=== PATIENT | female | born 1980 | race Caucasian/White ===

== ENCOUNTER → 2018-12-08 | Outpatient (CLI) | payer OTHER, SELFPAY ==
[2018-10-13 14:55] VITALS: BMI 24.5
--- NOTE | 2018-12-08 14:22 | BI_ITS ---
MAMMOGRAPHY - BILATERAL SCREENING REASON FOR EXAM: Female, 38 years old. Routine annual screening examination. PERTINENT HISTORY: Mother with breast cancer. Aunt with breast cancer. TECHNIQUE: Digital bilateral breast ingrid (3D mammographic acquisition) in the CC and MLO projections. 2-D mediolateral oblique (MLO) and craniocaudad (CC) views of both breasts were obtained. CAD: Full Field Digital Mammography with Computer Added Detection was performed. COMPARISON: None. Baseline examination. FINDINGS: Breast Composition: The breasts are extremely dense, which lowers the sensitivity of mammography. There are no dominant masses or suspicious calcifications. No other significant abnormalities are identified. BI/SCREEN MAMM (CAD) W/INGRID BILAT IMPRESSION: Negative screening mammogram. Yearly followup mammogram recommended. (A) ASSESSMENT CATEGORY: BIRADS Category 1: Negative. A letter regarding these results will be sent to the patient by the facility within 30 days. Approximately 10% of breast cancers are not detected by mammography. A normal mammogram should not delay biopsy of a clinically suspicious abnormality. [id number] Electronically Signed: Hiren Corrales, at 8:27 EDT , Service support ,
== END | disposition home or self-care (01) ==
LOC: OPBI 14:19
PROVIDERS: Family Provider Family Medicine; PCP Family Medicine; Referring Provider Obstetrics & Gynecology; Visit Provider Obstetrics & Gynecology
DX: Z12.31 Encounter for screening mammogram for malignant neoplasm of breast (principal)
CPT/HCPCS: 77063; 77067

== ENCOUNTER → 2019-03-01 | Outpatient (CLI) | payer OTHER, SELFPAY ==
[2018-10-13 14:55] VITALS: BMI 24.5
--- NOTE | 2019-03-01 09:31 | VDLE_ITS ---
Reason For Study: Burning and itching RIGHT LEFT CFV is compressible, spontaneous, phasic, CFV is compressible, spontaneous, phasic, competent and demonstrates normal competent, and demonstrates normal augmentation. augmentation. FV is compressible, spontaneous, phasic, FV is compressible, spontaneous, phasic, competent and demonstrates normal competent and demonstrates normal augmentation. augmentation. POP V is compressible, spontaneous, phasic, POP V is compressible, spontaneous, phasic, competent and demonstrates normal competent and demonstrates normal augmentation. augmentation. T/P Trunk is compressible. T/P Trunk is compressible. PTV is compressible. PTV is compressible. RT PerV is compressible. LT PerV is compressible. SFJ is competent and measures 0.56 x 0.76 cm. SFJ is competent and measures 0.62 x 0.67 cm. GSV proximal thigh measures 0.48 x 0.52 cm. GSV proximal thigh measures 0.39 x 0.36 cm. GSV above knee is competent. GSV at knee measures 0.33 x 0.36 cm. GSV at knee measures 0.28 x 0.32 cm. GSV is competent throughout. GSV below knee is INCOMPETENT for greater SSV proximal calf is competent and measures than 0.5 seconds. 0.20 x 0.18 cm. ASV mid calf is INCOMPETENT for greater than 0.5 seconds and measures 0.22 x 0.25 cm. SSV proximal calf is INCOMPETENT for greater than 0.5 seconds and measures 0.50 x 0.56 cm. Procedure Exam performed in department. Interpretation Summary Deep veins of the lower extremities are bilaterally patent and compressible segmentally. There is no evidence of deep vein thrombosis on either side. Valvular competence appears intact within the proximal deep venous systems bilaterally. The great saphenous veins appear bilaterally patent and compressible segmentally. Sapheno-femoral junctions are bilaterally competent . The right great saphenous vein appears competent above the knee. The right great saphenous vein appears incompetent below the knee. The left great saphenous vein appears segmentally competent. The right small saphenous vein is patent and incompetent. The left small saphenous vein is patent and competent. The right accessory saphenous vein in the right mid-calf is incompetent. Ordering Physician: Christiano Rowan Referring Physician: Keyur Bales Performed By: Nicci Thornton RVT
== END | disposition home or self-care (01) ==
LOC: CVS 09:30
PROVIDERS: Family Provider Family Medicine; PCP Family Medicine; Referring Provider Surgery; Visit Provider Surgery
DX: I87.2 Venous insufficiency (chronic) (peripheral) (principal); I83.10 Varicose veins of unspecified lower extremity with inflammation; M79.609 Pain in unspecified limb; R20.8 Other disturbances of skin sensation
CPT/HCPCS: 93970

== ENCOUNTER → 2019-04-20 12:37 | Outpatient (CLI) | payer OTHER, SELFPAY ==
[2018-10-13 14:55] VITALS: BMI 24.5
--- NOTE | 2019-04-20 12:39 | RAD_ITS ---
STUDY: X-RAY CHEST REASON FOR EXAM: Female, 39 years old. Cough TECHNIQUE: PA and lateral views of the chest. COMPARISON: January 01, 2015. FINDINGS: The lungs are clear and expanded. There is no demonstrated pleural abnormality. Normal size heart. Normal mediastinum and edita. Normal visualized pulmonary arteries. Normal visualized aortic arch and descending thoracic aorta. There are mild degenerative changes of the visualized thoracic spine. Normal visualized ribs, clavicles, and shoulders. There is no demonstrated abnormality of the visualized soft tissue structures of the upper abdomen. RAD/Chest PA and Lateral IMPRESSION: No demonstrated acute cardiopulmonary process. Electronically Signed: Jenni Molina MD at 16:01 EDT Tel , Service support ,
== END ==
PROVIDERS: Family Provider Family Medicine; PCP Family Medicine; Referring Provider Family Medicine; Visit Provider Family Medicine
DX: R05 Cough (principal)
CPT/HCPCS: 71046

== ENCOUNTER → 2019-08-17 12:25 | Outpatient (CLI) | payer OTHER, SELFPAY ==
[2018-10-13 14:55] VITALS: BMI 24.5
--- NOTE | 2019-08-17 12:36 | MRI_ITS ---
STUDY: MRI BRAIN WITH AND WITHOUT CONTRAST REASON FOR EXAM: Female, 39 years old. Intermitent episodes of RIGHT arm paresthesias and paralysis; R/O MS TECHNIQUE: Standardized multiplanar fat and water weighted pulse sequences were obtained. IV Dotarem 13ml was administered for the contrast portion of the examination. COMPARISON: None. FINDINGS: Normal size of the ventricles and extra-axial spaces for the patient''s age. Normal white matter tracts of the supratentorial brain. There is no evidence for recent intracranial ischemia or other cause of cytotoxic edema on diffusion weighted imaging (DWI). Normal bilateral basal ganglia. Normal thalami. There is no extra-axial fluid accumulation. Normal flow voids within the major intracranial circulation suggesting patency by spin echo criteria. Normal venous enhancement. There is no enhancing intra-axial or extra-axial abnormality. Normal sella turcica, pituitary gland, infundibular stalk, optic chiasm and hypothalamus. Normal tectal plate and pineal gland. Normal midbrain, queenie and medulla. Normal cerebellum. Normal basal cisterns. Normal bilateral temporal bones. Normal bilateral internal auditory canals. No demonstrated orbital abnormality, within the constraints of a routine brain study. Normal visualized paranasal sinuses. Normal calvarium and skull base. Normal visualized soft tissue structures. Normal visualized upper cervical spine. MRI/Brain W/WO Contrast IMPRESSION: Normal unenhanced and enhanced MRI of the brain. Electronically Signed: Joseph Ortiz MD at 14:46 EST Tel , Service support ,
--- NOTE | 2019-08-17 12:36 | MRI_ITS ---
STUDY: MRI CERVICAL SPINE WITH AND WITHOUT CONTRAST REASON FOR EXAM: Female, 39 years old. Episodes of RIGHT arm paralysis, numbness,right neck pain TECHNIQUE: Standardized fat and water weighted pulse sequences were obtained in the sagittal and axial following administration of IV 13ml Dotarem. COMPARISON: None FINDINGS: Normal foramen magnum and brainstem-cervical cord junction. Normal craniovertebral junction. Normal anterior atlantoaxial articulation. Normal odontoid process. There is straightening of the normal cervical lordosis. Normal vertebral bodies and posterior osseous elements. C2-3: Normal endplates. Normal disc height, signal and morphology. Normal central canal and intervertebral neural foramina. C3-4: Normal endplates. Normal disc height, signal and morphology. Normal central canal and intervertebral neural foramina. C4-5: Normal endplates. Normal disc height, signal and morphology. Normal central canal and intervertebral neural foramina. C5-6: Normal endplates. Normal disc height, signal and morphology. Normal central canal and intervertebral neural foramina. C6-7: Normal endplates. Normal disc height, signal and morphology. Normal central canal and intervertebral neural foramina. Arachnoid cyst of the right nerve root sheath. C7-T1: Normal endplates. Normal disc height, signal and morphology. Normal central canal and intervertebral neural foramina. Arachnoid cyst of the nerve root sheaths bilaterally. Normal cervical cord. Normal visualized soft tissue structures. MRI/Spine Cervical W/WO Contrast IMPRESSION: Normal unenhanced and enhanced MR examination of the cervical spine. Straightening of the normal lordotic curvature possibly from muscular spasm. No MR evidence of multiple sclerosis. Electronically Signed: Joseph Ortiz MD at 16:51 EST Tel , Service support ,
== END ==
LOC: MRI 12:26
PROVIDERS: PCP Family Medicine; Referring Provider Family Medicine; Visit Provider Family Medicine
DX: G83.21 Monoplegia of upper limb affecting right dominant side (principal); R20.2 Paresthesia of skin
CPT/HCPCS: 70553; 72156; A9575; A4216

== ENCOUNTER → 2020-01-19 14:55 | Outpatient (CLI) | payer OTHER, SELFPAY ==
[2020-01-04 14:56] VITALS: BMI 24.5
--- NOTE | 2020-01-19 14:55 | BI_ITS ---
MAMMOGRAPHY - BILATERAL SCREENING REASON FOR EXAM: Female, 39 years old. Routine annual screening examination. PERTINENT HISTORY: Non-contributory. TECHNIQUE: Digital bilateral breast ingrid (3D mammographic acquisition) in the CC and MLO projections. 2-D mediolateral oblique (MLO) and craniocaudad (CC) views of both breasts were obtained. CAD: Full Field Digital Mammography with Computer Added Detection was performed. COMPARISON: Comparison is made with prior study dated December 08, 2018. FINDINGS: Breast Composition: The breasts are extremely dense, which lowers the sensitivity of mammography. There are no dominant masses or suspicious calcifications. No other significant abnormalities are identified. There has been no significant change since the prior study. BI/SCREEN MAMM (CAD) W/INGRID BILAT IMPRESSION: Stable bilateral screening mammogram. Yearly follow-up mammogram recommended. (A) ASSESSMENT CATEGORY: BIRADS Category 1: Negative. A letter regarding these results will be sent to the patient by the facility within 30 days. Approximately 10% of breast cancers are not detected by mammography. A normal mammogram should not delay biopsy of a clinically suspicious abnormality. [id number] Electronically Signed: Hiren Corrales, at 8:09 EDT , Service support ,
== END ==
PROVIDERS: PCP Family Medicine; Referring Provider Obstetrics & Gynecology; Visit Provider Obstetrics & Gynecology
DX: Z12.31 Encounter for screening mammogram for malignant neoplasm of breast (principal)
CPT/HCPCS: 77063; 77067; 87624; 88175; G0145

== ENCOUNTER 2020-01-26 14:45 | Outpatient (RCR) | payer OTHER, SELFPAY ==
[2018-10-13 14:55] VITALS: BMI 24.5
--- NOTE | 2019-08-16 16:25 | MASS.EVAL ---
Massage Therapy Evaluation: Initial Evaluation Date: 08/16/2019 /Age: 08 1980, 39 Diagnosis: Neck and back pain Goals: Decrease muscle tension Decrease neck and shoulder pain Preventitive care Assessment: Meaghan is a good candidate for massage at this time. She responded well to her first treatment. Plan: To be seen one time per month or PRN for a total of 10 one hour sessions.
--- NOTE | 2020-06-28 09:24 | DS.PCM_ITS ---
Massage Therapy Discharge Summary: Initial Evaluation Date: 08/16/2019 Diagnosis: Neck and Back Pain No. of Visits: 3 Date of last visit: 01/26/2020 This patient is being discharged from our care at the [facility]. Thank you, Ayesha Prieto LMT
== END 2020-01-26 19:00 | disposition home or self-care (01) ==
LOC: MASS 14:45
PROVIDERS: PCP Family Medicine; Referring Provider Family Medicine; Visit Provider Family Medicine
DX: M54.2 Cervicalgia (principal); M54.9 Dorsalgia, unspecified
CPT/HCPCS: 97124

== ENCOUNTER 2020-03-16 06:09 | Day surgery (SDC) | payer OTHER, SELFPAY ==
[2020-01-04 14:56] VITALS: BMI 24.5
[2020-02-01 15:14] VITALS: BMI 24.5
--- NOTE | 2020-03-12 13:14 | HP.PCM_ITS ---
Problem List (1) Chronic venous insufficiency Status: Chronic (2) Varicose veins with inflammation Status: Chronic (3) Leg pain Status: Chronic Qualifiers: Laterality: right Qualified Code(s): M79.604 - Pain in right leg History of Present Illness Date of Admission: 03/16/20 Chief Complaint: Chronic venous insufficiency, Varicose veins with inflammation, Leg pain ? Right lower extremity The patient is a 40 year old F with a longstanding history of chronic venous insufficiency, varicose veins with inflammation, and leg pain involving her lower extremities. Her right lower extremity is more severely affected. For approximately 6 years, the patient has suffered from burning and discomfort in her right lower extremity, as well as itching. She denies swelling. She has no history of thrombophlebitis. She has undergone no prior vein procedures in the past. A venous duplex examination has been performed, which revealed incompetence of the right great saphenous vein, the right small saphenous vein, and an accessory saphenous vein in the mid calf. The implications of this diagnosis were discussed with the patient in detail. The options of management were fully explained. Conservative treatment measures were implemented, which included leg elevation, avoidance of idle standing and sitting, graduated compression stockings, weight control measures, active lifestyle, [id number] analgesics, etc. Despite these measures, the patient remained symptomatic, with symptoms which have adversely affected daily activities quality of life, and job functions. Past Medical History Past Medical History (Chronic Problems): Chronic Problems (Last Reviewed 02/01/20 @ 15:11 by Bessy Briseno) Chronic venous insufficiency (Chronic) Varicose veins with inflammation (Chronic) Leg pain (Chronic) Medical History: Medical History (Last Reviewed 02/01/20 @ 15:11 by Bessy Briseno) Anxiety (Acute) F41.9 celexa started Incomplete uterovaginal prolapse (Acute) N81.2 discussed options- plan expectant management but may seek surgical repair in future. 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 Lives: Spouse/ Significant Other Smoking Status: Never smoker Tobacco Use: Non-smoker Alcohol: Occasional Drugs: None - *Family History Paternal Family History: Family History (Last Reviewed 02/01/20 @ 15:11 by Bessy Briseno) Mother Heart disease Grandmother Breast cancer Father Hypercholesterolemia Review of Systems Constitutional: Denies: Chills, Fever, Weight Change HEENT: Denies: Head Aches, Sinus Congestion, Sinus Drainage Cardiovascular: Denies: Chest Pain, Palpitations Respiratory: Denies: Cough, Shortness of breath at rest, Sputum production Gastrointestinal: Denies: Abdominal Pain, Nausea, Vomiting Genitourinary: Denies: Dysuria Musculoskeletal: Denies: Joint Pain, Joint Tenderness Skin: Denies: Rash, Wounds Neurological: Denies: Numbness, Tingling, Focal weakness Psychiatric: Denies: Anxiety, Depression, Homicidal Ideations, Suicidal Ideations Hematologic/ Lymphatic: Denies: Easy Bruising, Easy Bleeding VTE Information - Inpt Only VTE Present on Admission: No VTE Mechan Device Prophylaxis: SCD's - Left VTE Pharm Prophylaxis ordered?: Yes - Physical Exam Vitals/I&O's: Body Mass Index (BMI) 24.5 General: Alert, Oriented x3, Cooperative, No apparent distress, Well developed, Well nourished HEENT: Atraumatic, PERRLA, EOMI, Normocephalic Neck: Supple, No JVD, Negative Carotid Bruits, Negative Hepatojugular Reflux, No Nuchal Rigidity, Trachea Midline Lungs: Clear to auscultation, Normal air movement, No rhonchi, No wheeze, No rales, Diminished Cardiovascular: Regular rate, Regular Rhythm, Normal S1, Normal S2, No murmurs Abdomen: Bowel Sounds Present, Soft, Non Tender Extremities: No clubbing, No cyanosis, No edema, Capillary Refill Less than 3 Seconds, No Calf Tenderness, - - Multiple large varicosities are noted in the right lower extremity, particularly on the medial calf. There are otherwise no open wounds or ulcerations, and no significant skin changes. Skin: No rashes, No breakdown Musculoskeletal: No Tenderness to Palpation of Joints or Extremities, No Muscle Wasting Neurological: Cranial nerves II-XII grossly intact, Neuro grossly intact Psych/Mental Status: Normal Affect, Appropriate, Alert and oriented to time, place, person, mood and affect Assessment/Plan All Active Problems (Last Reviewed 02/01/20 @ 15:11 by Bessy Briseno) Hip pain (Acute) Back pain (Acute) Segmental and somatic dysfunction of sacral region (Acute) Segmental and somatic dysfunction of lumbar region (Acute) Anxiety (Acute) Incomplete uterovaginal prolapse (Acute) This is a 40-year-old female with a longstanding history of chronic venous insufficiency, varicose veins with inflammation, and leg pain involving her right lower extremity. Despite a prolonged period of conservative treatment, the venous symptoms in the patient's right lower extremity have persisted, and continued to adversely affect the patient's daily activities, quality of life, and job functions. The options of management have been fully explained. The indications and risks of endovenous laser ablation of the right great saphenous vein, the right small saphenous vein, and the right accessory saphenous vein in the right calf have been discussed with the patient in detail. The patient has indicated her desire to proceed with the aforementioned procedure. The appropriate preprocedure consent process has been undertaken. The patient is to be admitted for elective outpatient surgery.
[2020-03-16] VITALS (7 sets, daily range): BP systolic 104–114; BP diastolic 68–78; PULSE 58–81; RESP 16–18; TEMP 36.3–37.3; O2SAT 97–100; BMI 24.2
[2020-03-16 06:38] LABS: Internal QC Validated? YES +Cl - CLEAR BKGD; Pregnancy, Urine Negative Negative
[2020-03-16] MEDS: Lactated Ringers 1,000 ML 100 ML IV ×2 (06:54→10:47)
[2020-03-16] MEDS: Enoxaparin 30 MG/0.3 ML Syringe SC (06:54)
--- NOTE | 2020-03-16 10:41 | DCINST_ITS ---
Discharge Diet: No Restrictions Discharge Activity: May Not Drive May shower in (days): 2 Weight Bearing Status: Weight bearing as tolerated Lifting Restrictions: 10 pounds Keep extremity elevated above heart level: Right Leg Call your doctor if you observe: Shortness of breath, Fainting spells, Chest pain, Prolonged hiccoughing, Uncontrolled pain Suture Line Care: Avoid Pulling/Pushing Remove Dressing in (days):: 2 - Then rewrap leg with Arsen daily from base of toes to upper thigh. Allergies/Adverse Reactions: Allergies Penicillins Allergy (Verified 03/16/20 06:38) NEEDS FOLLOW-UP Medications to take at Discharge NK 12/30/19 Primary Care Physician: Keyur Bales DO [Primary Care Provider] - Test Results: Test results from this visit will be discussed in further detail at your follow- up appointment, if applicable. Please Follow Up With: Christiano Rowan MD When: 10-14 days
--- NOTE | 2020-03-19 11:49 | OP.PCM_ITS ---
Problem List (1) Chronic venous insufficiency Status: Chronic (2) Varicose veins with inflammation Status: Chronic (3) Leg pain Status: Chronic Qualifiers: Laterality: right Qualified Code(s): M79.604 - Pain in right leg Report of Operation Date of Procedure: 03/16/20 Pre-Operative Diagnosis: Chronic venous insufficiency, Varicose veins with inflammation, Leg pain - Right lower extremity Post-Operative Diagnosis: Chronic venous insufficiency, Varicose veins with inflammation, Leg pain - Right lower extremity Surgery/Procedure Performed:: 1. Endovenous laser ablation of the right great saphenous vein. 2. Endovenous laser ablation of the right small saphenous vein. 3. Endovenous laser ablation of the right accessory saphenous vein (calf) Description of Surgical Findings:: As above Type of Anesthesia:: General, Tumescent Anesthesiologist: Maxim Ny Specimen's removed: None Drains: None Estimated Blood Loss (mL): Minimal Description of Procedure: This is a 40-year-old female who presented with chronic venous insufficiency, varicose veins with inflammation, and leg pain involving her right lower extremity. A preoperative venous duplex examination revealed segmental valvular incompetence involving the right great saphenous vein, right small saphenous vein, and the right accessory saphenous vein in the calf. The implications of this diagnosis were discussed with the patient in detail. The options of management were fully explained. Conservative treatment measures were implemented, which included leg elevation, avoidance of idle standing and sitting, graduated compression stockings, weight control measures, active lifestyle, [id number] analgesics, etc. Despite these measures, the patient remained symptomatic, with symptoms which adversely affected daily activities, quality of life, and job functions. The options of management were discussed with the patient thoroughly. The indications and risks of endovenous laser ablation of the right great saphenous vein, the right small saphenous vein, and the right accessory saphenous vein were discussed with the patient in detail. The appropriate expectations related to the procedure were discussed in detail. The patient indicated her desire to proceed, and the appropriate preprocedure consent was obtained. The patient underwent ultrasound marking of the right great saphenous vein, right small saphenous vein, and the right accessory saphenous vein in the calf preoperatively. She was then brought to the operating room suite, placed supine upon the operating room table, where general anesthesia was administered by the anesthesia staff. The patient's right lower extremity and right groin were p repped and draped in the appropriate sterile manner. The patient was placed in reverse Trendelenburg position. Ultrasonography was used to image the right great saphenous vein in the distal calf. The micropuncture technique was used to access the right great saphenous vein percutaneously in the distal calf. In this manner, a 0.018 inch guidewire was advanced intraluminally into the right great saphenous vein, and was visualized by ultrasonography. A micropuncture sheath was advanced over the guidewire. The 0.018 inch guidewire was exchanged for a 0.035 inch guidewire, which was then advanced intraluminally to a level just distal to the right sapheno-femoral junction, as confirmed by ultrasound imaging. A long 4 Marshallese sheath was then advanced over the guidewire, and its tip was positioned approximately 2 to 2-1/2 cm distal to the right sapheno- femoral junction. Attention was then directed to the incompetent right small saphenous vein. To enhance exposure, the right lower extremity was placed in an externally rotated position with the right knee flexed. Using ultrasound imaging and the micropuncture technique, a micropuncture sheath was introduced intraluminally near the inferior border of the right gastrocnemius muscle, and was left in place, capped, for subsequent access purposes. Attention was then directed to the incompetent right accessory saphenous vein in the right calf. Using ultrasound imaging and the micropuncture technique, a micropuncture sheath was introduced intraluminally in the distal calf. It became apparent, however, that the guidewire did not freely advance proximally into the proximal portion of the incompetent accessory saphenous vein, with its junction at knee level. Despite several maneuvers, and the use of a hydrophilic guidewire, advancement into the proximal portion of the incompetent accessory saphenous vein was not possible. Therefore, the decision was made to achieve a second access site into the proximal portion of the incompetent right accessory saphenous vein, which was accomplished using the micropuncture technique and ultrasound imaging. In this manner, a second micropuncture sheath was introduced more proximally, and left in place, capped, for subsequent access purposes. Attention was then redirected to the long 4 Marshallese sheath which had been previously placed intraluminally within the right great saphenous vein. Perivenous tumescent anesthesia was injected from the 4 Marshallese sheath exit site up to the tip of the sheath near the right saphenofemoral junction. This was performed segmentally using ultrasound imaging. The AngioDynamics laser fiber was then introduced into the 4 Marshallese sheath and coupled appropriately. Ultrasonography was used to confirm that the tip of the laser fiber was positioned within the right great saphenous vein approximately 2 to 2-1/2 cm distal to the right saphenofemoral junction. The patient was placed in Trendelenburg position and the laser fiber was activated. The AngioDynamics laser was slowly withdrawn at a constant rate throughout the length of the right great saphenous vein, thereby ablating the right great saphenous vein segmentally. The energy applied was approximately 60 to 80 J/cm. Following the laser ablation, the laser fiber and sheath were removed, and manual pressure was briefly applied to the percutaneous access site to achieve hemostasis. Attention was then directed to the incompetent right small saphenous vein, into which a micropuncture sheath had been previously placed. A 0.035 inch guidewire was introduced intraluminally and advanced into the proximal portion of the right small saphenous vein. The long 4 Marshallese sheath was then advanced over the guidewire and into position intraluminally within the right small saphenous vein. Perivenous tumescent anesthesia was then injected from the 4 Marshallese sheath exit site up to the tip of the sheath in the proximal portion of the right small saphenous vein. This was performed segmentally using ultrasound imaging. The AngioDynamics laser fiber was then introduced into the 4 Marshallese sheath and coupled appropriately. Ultrasonography was used to confirm that the tip of the laser fiber was positioned within the proximal portion of the right small saphenous vein, several centimeters distal to its junction with the deep venous system, and remaining within the superficial portion of the right small saphenous vein. The patient was placed in Trendelenburg position and the laser fiber was activated. The AngioDynamics laser was slowly withdrawn at a constant rate throughout the length of the right small saphenous vein, thereby ablating the right small saphenous vein segmentally. The energy applied was approximately 60 to 80 J/cm. Following the laser ablation, the laser fiber and sheath were removed, and manual pressure was briefly applied to the percutaneous access site to achieve hemostasis. Attention was then directed to the micropuncture sheath which had been previou sly placed intraluminally within the distal portion of the incompetent right accessory saphenous vein. A 0.035 inch guidewire was introduced intraluminally and advanced as far proximally as possible, though meeting with resistance and obstruction, as had occurred previously. The long 4 Marshallese sheath was then advanced over the guidewire into the accessory saphenous vein intraluminally. Perivenous tumescent anesthesia was then injected from the 4 Marshallese sheath exit site up to the tip of the sheath, which was positioned approximately midway up the accessory saphenous vein, to the level of resistance. The AngioDynamics laser fiber was then introduced into the 4 Marshallese sheath and coupled appropriately. The patient was placed in Trendelenburg position and the laser fiber was activated. The AngioDynamics laser was slowly withdrawn at a constant rate throughout the length of the distal accessory saphenous vein, thereby ablating the distal portion of the accessory saphenous vein segmentally. The energy applied was approximately 60 to 80 J/cm. Following the laser ablation, the laser fiber and sheath were removed, and manual pressure was briefly applied to the percutaneous access site to achieve hemostasis. Attention was then directed to the micropuncture sheath which had been previously placed intraluminally within the incompetent accessory saphenous vein, just proximal to the site of obstruction which had been previously encountered. A 0.035 inch guidewire was introduced intraluminally and advanced into the proximal portion of the incompetent accessory saphenous vein, near its junction with the previously ablated great saphenous vein. The long 4 Marshallese sheath was then advanced over the guidewire and into position intraluminally within the accessory saphenous vein. Perivenous tumescent anesthesia was injected from the 4 Marshallese sheath exit site up to the tip of the sheath in the proximal accessory saphenous vein. This was performed segmentally using ultrasound imaging. The AngioDynamics laser fiber was then introduced into the 4 Marshallese sheath and coupled appropriately. Ultrasonography was used to confirm that the tip of the laser fiber was positioned within the proximal portion of the incompetent accessory saphenous vein, near its junction with the previously ablated great saphenous vein. The patient was placed in Trendelenburg position and the laser fiber was activated. The AngioDynamics laser was slowly withdrawn at a constant rate throughout the length of the proximal accessory saphenous vein, thereby ablating the proximal accessory saphenous vein segmentally. The energy applied was approximately 60 to 80 J/cm. Following the laser ablation, the laser fiber and sheath were removed, and manual pressure was briefly applied to the percutaneous access site to achieve hemostasis. After assuring satisfactory hemostasis, the access sites were approximated using Cavilon and Steri-Strips. Dry sterile gauze dressings were applied over each of the access sites, and the leg was wrapped from the base of the toes to the upper thigh with Kerlix, followed by Arsen wrap. The blood loss for the procedure was minimal. The sponge, needle, and instrument counts at the end of the procedure were correct. The patient tolerated the procedure well, and was transported from the operating room to the postanesthesia care unit in stable condition. The amount of tumescent anesthesia utilized, number of joules applied, and treatment times were recorded separately. - Complications None - Admit VTE Documentation VTE Present on Admission: No VTE Mechan Device Prophylaxis: SCD's - Left VTE Pharm Prophylaxis ordered?: Yes
== END 2020-03-16 12:30 | disposition home or self-care (01) ==
LOC: SDC 06:11 → AC 06:11
PROVIDERS: PCP Family Medicine; Referring Provider Surgery; Visit Provider Surgery
PROC: (CPT 36478; principal; 2020-03-16 07:15)
DX: I83.11 Varicose veins of right lower extremity with inflammation (principal); M99.03 Segmental and somatic dysfunction of lumbar region; M99.04 Segmental and somatic dysfunction of sacral region
CPT/HCPCS: 01930; 36478; 36479; 81025; J7040; J7120; C1769; J2405

== ENCOUNTER → 2020-04-25 | Outpatient (CLI) | payer OTHER, SELFPAY ==
[2020-04-25 11:09] VITALS: BMI 25.0
[2020-04-28 09:46] LABS: HPV APTIMA, High Risk Negative (Negative)
== END | disposition home or self-care (01) ==
LOC: LABSPEC 12:26
PROVIDERS: PCP Family Medicine; Visit Provider Nurse Practitioner Women's Health
DX: Z12.4 Encounter for screening for malignant neoplasm of cervix (principal)
CPT/HCPCS: 87624; 88175; G0145

== ENCOUNTER → 2020-05-12 09:16 | Outpatient (CLI) | payer OTHER, SELFPAY ==
[2020-04-25 11:09] VITALS: BMI 25.0
[2020-05-12 09:21] LABS: Mucous, Urine 0 SEEN /hpf (<or=2+)
[2020-05-12 10:41] LABS: Color, Urine Yellow (Yellow); Glucose, Dipstick Normal (Normal); Ketone-Dipstick 50 mg/dl (Negative); Leukocyte Esterase-Dipstick 25 /ul (Negative); Nitrite-Dipstick Negative (Negative); Occult Blood-Urine 150 /ul (Negative); Protein-Dipstick 30 mg/dl (Negative); Urine Bilirubin Dipstick Negative (Negative); Urine Clarity Sl. Cloudy (Clear); Urine Urobilinogen Normal (Normal)
[2020-05-12 10:57] LABS: Red Blood Cells-Urine 10-25 SEEN /hpf (0-5)
[2020-05-12 10:58] LABS: Bacteria 2+ /hpf (None Seen); Calcium Oxalate Crystals Ur 1+ /hpf (<or=2+); Squamous Epithelial Cells - UA 0-5 SEEN /hpf (5-10); White Blood Cells 0-5 SEEN /hpf (0-5)
== END ==
PROVIDERS: PCP Family Medicine; Visit Provider Family Medicine
DX: N30.00 Acute cystitis without hematuria (principal)
CPT/HCPCS: 81001; 87086; 87088

== ENCOUNTER → 2020-06-26 08:46 | Outpatient (CLI) | payer OTHER, SELFPAY ==
[2020-04-25 11:09] VITALS: BMI 25.0
--- NOTE | 2020-06-26 08:47 | VDLE_ITS ---
Reason For Study: S/P EVLA RIGHT CFV is compressible, spontaneous, phasic, competent and demonstrates normal augmentation. FV is compressible, spontaneous, phasic, competent and demonstrates normal augmentation. POP V is compressible, spontaneous, phasic, competent and demonstrates normal augmentation. T/P Trunk is compressible. PTV is compressible. RT PerV is compressible. GSV is occluded from junction to mid calf s/p EVLA. SSV is occluded s/p EVLA. ASV mid calf is occluded s/p EVLA. Varicose vein in prox-mid calf is comperssible. Unable to visualize orgin of varicose vein. Procedure This is a venous duplex using B-mode, color flow and spectral Doppler. Exam performed in department. Interpretation Summary Deep veins of the right lower extremity are patent and compressible segmentally. There is no evidence of right lower extremity deep vein thrombosis. Valvular competence appears intact within the proximal deep venous system on the right . The right great saphenous vein, small saphenous vein, and accessory saphenous vein in the right mid-calf are occluded, consistent with a prior endothermal venous ablation procedure. A varicose vein in the right proximal/mid-calf is compressible. Ordering Physician: Christiano Rowan Referring Physician: Keyur Bales Performed By: Nicci Thornton RVT
== END ==
PROVIDERS: PCP Family Medicine; Referring Provider Surgery; Visit Provider Surgery
DX: I87.2 Venous insufficiency (chronic) (peripheral) (principal); I83.899 Varicose veins of unspecified lower extremity with other complications
CPT/HCPCS: 93971

== ENCOUNTER → 2020-07-10 09:25 | Outpatient (CLI) | payer OTHER, SELFPAY ==
[2020-04-25 11:09] VITALS: BMI 25.0
== END ==
PROVIDERS: PCP Family Medicine; Referring Provider Chiropractor; Visit Provider Chiropractor
DX: M99.03 Segmental and somatic dysfunction of lumbar region (principal); M99.04 Segmental and somatic dysfunction of sacral region
CPT/HCPCS: 72110

== ENCOUNTER → 2020-10-31 09:11 | Outpatient (CLI) | payer OTHER, SELFPAY ==
[2020-04-25 11:09] VITALS: BMI 25.0
[2020-10-31 10:32] LABS: Progesterone Level 3.49 ng/mL (See Comment); T3 Total - Triiodothyronine 1.16 ng/mL (0.6-1.81)
[2020-10-31 10:37] LABS: Estradiol 91.9 pg/mL; Follicle Stimulating Hormone 2.6 mIU/mL; Free T3 3.2 pg/mL (2.18-3.98); Luteinizing Hormone 4.9 mIU/mL; T4 Free Direct 1.05 ng/dL (0.76-1.46); T4 Total, Thyroxin 7.5 ug/dL (4.8-13.9); Thyroid Stim Hormone (TSH) 1.57 uIU/mL (0.358-3.74)
== END ==
PROVIDERS: PCP Family Medicine; Referring Provider Family Medicine; Visit Provider Family Medicine
DX: Z00.00 Encounter for general adult medical examination without abnormal findings (principal); N92.1 Excessive and frequent menstruation with irregular cycle; N89.8 Other specified noninflammatory disorders of vagina
CPT/HCPCS: 36415; 82627; 82670; 83001; 83002; 84144; 84403; 84436; 84439; 84443; 84480; 84481; 82626

== ENCOUNTER → 2021-05-15 13:04 | Outpatient (CLI) | payer OTHER, SELFPAY ==
--- NOTE | 2021-05-15 13:06 | BI_ITS ---
MAMMOGRAPHY - BILATERAL SCREENING REASON FOR EXAM: Female, 41 years old. Routine annual screening examination. PERTINENT HISTORY: Non-contributory. TECHNIQUE: Digital bilateral breast ingrid (3D mammographic acquisition) in the CC and MLO projections. 2-D mediolateral oblique (MLO) and craniocaudad (CC) views of both breasts were obtained. CAD: Full Field Digital Mammography with Computer Added Detection was performed. COMPARISON: Comparison is made with prior study dated 01/19/2020 and 12/08/2017. FINDINGS: Breast Composition: The breasts are extremely dense, which lowers the sensitivity of mammography. There are no dominant masses or suspicious calcifications. No other significant abnormalities are identified. There has been no significant change since the prior study. BI/SCRN MAMM (CAD)W/INGRID BILAT IMPRESSION: Stable bilateral screening mammogram. Yearly follow-up mammogram recommended. (A) ASSESSMENT CATEGORY: BIRADS Category 1: Negative. A letter regarding these results will be sent to the patient by the facility within 30 days. Approximately 10% of breast cancers are not detected by mammography. A normal mammogram should not delay biopsy of a clinically suspicious abnormality. [id number] Electronically Signed: Hiren Corrales MD at 13:58 EST , Service support ,
== END ==
PROVIDERS: PCP Family Medicine; Referring Provider Obstetrics & Gynecology; Visit Provider Obstetrics & Gynecology
DX: Z12.31 Encounter for screening mammogram for malignant neoplasm of breast (principal)
CPT/HCPCS: 77063; 77067

== ENCOUNTER 2021-08-17 13:58 | Outpatient (CLI) | payer OTHER, SELFPAY ==
--- NOTE | 2021-08-17 14:26 | US_ITS ---
HISTORY: menorrhagia EXAMINATION: US Pelvis Non OB Complete With Transvaginal Imaging TECHNIQUE: Transvaginal (for optimal evaluation of the adnexa) pelvic ultrasound was performed. Grayscale, spectral waveform, and color flow Doppler evaluation of the adnexa. COMPARISON: None FINDINGS: UTERUS: retroverted. The uterus measures 9.5 x 6.0 x 5.1 cm. There is no uterine mass. The endometrial stripe measures 4 mm in AP diameter which is within normal limits. Cervical nabothian cyst. RIGHT OVARY: 3.8 x 2.6 x 2.1 cm. Non-enlarged, normal echogenicity. No waveforms obtained. Color flow demonstrated. LEFT OVARY: 3.0 x 2.6 x 1.6 cm. Non-enlarged, normal echogenicity. No waveforms obtained. Color flow demonstrated. FREE FLUID: None. US/Transvaginal Non- IMPRESSION: Unremarkable pelvic ultrasound. at 1614 Reported and signed by: Sohail Weston MD Electronically Signed: Sohail Weston MD at 16:13 EST ,
--- NOTE | 2021-08-17 14:26 | US_ITS ---
HISTORY: menorrhagia EXAMINATION: US Pelvis Non OB Complete With Transvaginal Imaging TECHNIQUE: Transvaginal (for optimal evaluation of the adnexa) pelvic ultrasound was performed. Grayscale, spectral waveform, and color flow Doppler evaluation of the adnexa. COMPARISON: None FINDINGS: UTERUS: retroverted. The uterus measures 9.5 x 6.0 x 5.1 cm. There is no uterine mass. The endometrial stripe measures 4 mm in AP diameter which is within normal limits. Cervical nabothian cyst. RIGHT OVARY: 3.8 x 2.6 x 2.1 cm. Non-enlarged, normal echogenicity. No waveforms obtained. Color flow demonstrated. LEFT OVARY: 3.0 x 2.6 x 1.6 cm. Non-enlarged, normal echogenicity. No waveforms obtained. Color flow demonstrated. FREE FLUID: None. US/Pelvic (Non ) IMPRESSION: Unremarkable pelvic ultrasound. at 1614 Reported and signed by: Sohail Weston MD Electronically Signed: Sohail Weston MD at 16:13 EST ,
== END 2021-08-17 23:59 | disposition home or self-care (01) ==
LOC: US 14:25
PROVIDERS: PCP Family Medicine; Referring Provider Nurse Practitioner Women's Health; Visit Provider Nurse Practitioner Women's Health
DX: N92.0 Excessive and frequent menstruation with regular cycle (principal)
CPT/HCPCS: 76830; 76856

== ENCOUNTER → 2022-05-17 | Outpatient (CLI) | payer OTHER, SELFPAY ==
--- NOTE | 2022-05-17 14:31 | BI_ITS ---
MAMMOGRAPHY - BILATERAL SCREENING REASON FOR EXAM: Female, 42 years old. Routine annual screening examination. PERTINENT HISTORY: Aunt with breast cancer. TECHNIQUE: Digital bilateral breast ingrid (3D mammographic acquisition) in the CC and MLO projections. 2-D mediolateral oblique (MLO) and craniocaudad (CC) views of both breasts were obtained. CAD: Full Field Digital Mammography with Computer Added Detection was performed. COMPARISON: Comparison is made with prior study dated 05/15/2021 and 01/19/2020. FINDINGS: Breast Composition: The breasts are extremely dense, which lowers the sensitivity of mammography. There are no dominant masses or suspicious calcifications. No other significant abnormalities are identified. There has been no significant change since the prior study. BI/SCRN MAMM (CAD)W/INGRID BILAT IMPRESSION: Stable bilateral screening mammogram. Yearly follow-up mammogram recommended. (A) ASSESSMENT CATEGORY: BIRADS Category 1: Negative. A letter regarding these results will be sent to the patient by the facility within 30 days. Approximately 10% of breast cancers are not detected by mammography. A normal mammogram should not delay biopsy of a clinically suspicious abnormality. [id number] Electronically Signed: Hiren Corrales MD at 8:26 EST ,
== END | disposition home or self-care (01) ==
LOC: OPBI 14:30
PROVIDERS: PCP Family Medicine; Visit Provider Obstetrics & Gynecology
DX: Z12.31 Encounter for screening mammogram for malignant neoplasm of breast (principal)
CPT/HCPCS: 77063; 77067

== ENCOUNTER → 2022-11-15 | Outpatient (CLI) | payer OTHER, SELFPAY ==
[2022-11-15 15:25] LABS: Absolute Lymphocyte Count 2.24 X10^3/uL (0.83-4.51); Absolute Neutrophil Count 4.5 X10^3/uL (2.0-7.7); Basophil# 0.06 X10^3/uL; Basophil% 0.8 % (0-1); Eosinophil# 0.09 X10^3/uL; Eosinophils% 1.2 % (0-5); Hematocrit 41.6 % (37-47); Hemoglobin 13.3 g/dL (12.0-15.0); Lymphocyte # 2.24 X10^3/ul (0.83-4.51); Lymphocyte % 30.2 % (19-41); Mean Corpuscular Hgb 29.7 pg (27.0-32.0); Mean Corpuscular Volume 92.9 fL (81-99); Mean Platelet Vol. 10.7 fl (6.2-12.0); Monocyte# 0.51 X10^3/uL; Monocyte% 6.9 % (0-10); NRBC Flagged by Analyzer 0 % (0-5); Neutrophil # 4.49 X10^3/uL (2.7-7.7); Neutrophil % 60.5 % (47-70); Platelet Count 335 K/mm3 (150-450); RBC Distribution Width CV 12.8 % (11.6-14.6); RBC Distribution Width SD 43.6 fl (35.1-43.9); Red Blood Count 4.48 M/mm3 (4.2-5.4); White Blood Count 7.4 K/mm3 (4.4-11.0)
[2022-11-15 16:00] LABS: ALB/GLOB Ratio 0.9 RATIO (0.9-2.4); AST(SGOT) 19 U/L (15-37); Alanine Aminotransfer ALT/SGPT 28 U/L (13-56); Albumin, Serum 3.9 g/dL (3.2-5.0); Alkaline Phosphatase 50 U/L (45-117); Anion Gap 5 (5-15); BUN 14 mg/dL (7-18); BUN/Creat Ratio 20.2 RATIO (10-20); CRP, High Sensitivity Cardiac 0.34 mg/L; Calcium,Total 9.4 mg/dL (8.5-10.1); Chloride 106 mmol/L (98-107); Creatinine, Serum 0.69 mg/dL (0.55-1.02); EST Glomerular Filtration Rate 97 mL/min (>60); Est Glom Filt Rate - Afr Amer 118 mL/min (>60); Globulin 4.3 g/dL (2.2-4.2); Glucose 113 mg/dL (74-106); Potassium 3.9 mmol/L (3.5-5.1); Protein, Total 8.2 g/dL (6.4-8.2); Sodium Level 138 mmol/L (136-145); Thyroid Stim Hormone (TSH) 2.82 uIU/mL (0.358-3.74)
== END | disposition home or self-care (01) ==
LOC: BFHLAB 13:25
PROVIDERS: PCP Family Medicine; Referring Provider Family Medicine; Visit Provider Family Medicine
DX: Z00.00 Encounter for general adult medical examination without abnormal findings (principal); R00.2 Palpitations
CPT/HCPCS: 36415; 80053; 83735; 84439; 84443; 85025; 86141

== ENCOUNTER → 2023-05-13 | Outpatient (CLI) | payer OTHER, SELFPAY ==
--- NOTE | 2023-05-13 09:01 | CT_ITS ---
STUDY: CT ABDOMEN AND PELVIS WITHOUT CONTRAST REASON FOR EXAM: Female, 43 years old. Left flank pain. RADIATION DOSAGE (If Supplied By Facility): CTDIvol = ( 6.6 ) mGy, DLP = ( 328.15 ) mGycm TECHNIQUE: Transaxial images were obtained from the dome of the diaphragm to the symphysis pubis without oral contrast, and without intravenous contrast. Sagittal and coronal images were reconstructed. Individualized dose optimization techniques were used for this CT. COMPARISON: None. FINDINGS: The visualized lung bases are unremarkable. The visualized portions of the heart are within normal limits. Normal liver. Normal gallbladder and extrahepatic biliary system. Normal spleen. Normal pancreas. Normal bilateral adrenal glands. Normal right kidney. Normal left kidney. Normal visualized stomach. Normal small intestine. Normal colon. The appendix is visualized and appears normal. Normal abdominal aorta. Normal inferior vena cava. Normal retroperitoneum. Normal urinary bladder. Enlarged uterus. Small benign-appearing bilateral inguinal lymph nodes. Normal abdominal wall. Normal osseous structures. CT/Abdomen/Pelvis without Cont IMPRESSION: Normal unenhanced CT of the abdomen and pelvis. Electronically Signed: Hiren Corrales MD at 9:56 EST ,
== END | disposition home or self-care (01) ==
LOC: CT 09:00
PROVIDERS: PCP Family Medicine; Referring Provider Nurse Practitioner Family; Visit Provider Nurse Practitioner Family
DX: R10.9 Unspecified abdominal pain (principal)
CPT/HCPCS: 74176

== ENCOUNTER → 2023-06-03 | Outpatient (CLI) | payer OTHER, SELFPAY ==
--- NOTE | 2023-06-03 14:08 | BI_ITS ---
MAMMOGRAPHY - BILATERAL SCREENING REASON FOR EXAM: Female, 43 years old. Routine annual screening examination. PERTINENT HISTORY: Non-contributory. TECHNIQUE: Digital bilateral breast ingrid (3D mammographic acquisition) in the CC and MLO projections. 2-D mediolateral oblique (MLO) and craniocaudad (CC) views of both breasts were obtained. CAD: Full Field Digital Mammography with Computer Added Detection was performed. COMPARISON: Comparison is made with prior study dated May 17, 2022 and May 15, 2021. FINDINGS: Breast Composition: The breasts are extremely dense, which lowers the sensitivity of mammography. There are no dominant masses or suspicious calcifications. No other significant abnormalities are identified. There has been no significant change since the prior study. BI/SCRN MAMM (CAD)W/INGRID BILAT IMPRESSION: Stable bilateral screening mammogram. Yearly follow-up mammogram recommended. (A) ASSESSMENT CATEGORY: BIRADS Category 1: Negative. A letter regarding these results will be sent to the patient by the facility within 30 days. Approximately 10% of breast cancers are not detected by mammography. A normal mammogram should not delay biopsy of a clinically suspicious abnormality. [id number] Electronically Signed: Hiren Corrales MD at 8:43 EST ,
== END | disposition home or self-care (01) ==
LOC: OPBI 14:07
PROVIDERS: PCP Family Medicine; Referring Provider Obstetrics & Gynecology; Visit Provider Obstetrics & Gynecology
DX: Z12.31 Encounter for screening mammogram for malignant neoplasm of breast (principal)
CPT/HCPCS: 77063; 77067

== ENCOUNTER 2023-11-25 09:56 | Outpatient (RCR) | payer OTHER, SELFPAY | END 2023-12-05 23:59 | LOC: NS 09:56 | PROVIDERS: PCP Family Medicine; Referring Provider Family Medicine; Visit Provider Family Medicine | DX: Z71.3 Dietary counseling and surveillance (principal) | CPT/HCPCS: 97802 ==

== ENCOUNTER 2023-12-16 13:27 | Outpatient (RCR) | payer OTHER, SELFPAY | END 2024-01-04 23:59 | LOC: NS 13:27 | PROVIDERS: PCP Family Medicine; Referring Provider Family Medicine; Visit Provider Family Medicine | DX: Z71.3 Dietary counseling and surveillance (principal) | CPT/HCPCS: 97803 ==

== ENCOUNTER 2024-01-29 11:30 | Outpatient (RCR) | payer OTHER, SELFPAY | END 2024-02-04 23:59 | LOC: NS 11:30 | PROVIDERS: PCP Family Medicine; Referring Provider Family Medicine; Visit Provider Family Medicine | DX: Z71.3 Dietary counseling and surveillance (principal) | CPT/HCPCS: 97803 ==

== ENCOUNTER 2024-03-01 11:28 | Outpatient (RCR) | payer OTHER, SELFPAY | END 2024-03-06 23:59 | LOC: NS 11:28 | PROVIDERS: PCP Family Medicine; Referring Provider Family Medicine; Visit Provider Family Medicine | DX: Z71.3 Dietary counseling and surveillance (principal) | CPT/HCPCS: 97803 ==

== ENCOUNTER 2024-03-31 11:24 | Outpatient (RCR) | payer OTHER, SELFPAY | END 2024-04-05 23:59 | LOC: NS 11:24 | PROVIDERS: PCP Family Medicine; Referring Provider Family Medicine; Visit Provider Family Medicine | DX: Z71.3 Dietary counseling and surveillance (principal) | CPT/HCPCS: 97803 ==

== ENCOUNTER 2024-04-26 08:19 | Day surgery (SDC) | payer OTHER, SELFPAY ==
[2024-04-26] VITALS (9 sets, daily range): BP systolic 107–115; BP diastolic 68–76; PULSE 64–88; RESP 14–16; TEMP 36.1–37.3; O2SAT 98–100; BMI 25.6
[2024-04-26 08:40] LABS: Internal QC Validated? YES +Cl - CLEAR BKGD; Pregnancy, Urine Negative Negative
--- NOTE | 2024-04-26 08:45 | PCM.PRE.AN2 ---
ASA Classification* ASA Classification ASA Classification: 2 Assessment & Plan Anesthesia* Anesthesia Assessment Anesthesia Assessment: Discussed sedation and/or anesthesia options, risks, benefits, and alternatives with patient/parents/legal guardian/POA. Questions invited. The patient/parents/legal guardian/POA seems to understand and agrees to proceed with anesthesia plan. Reviewed the physical assessment, medical history, allergy history and patient home medications list prior to surgery/procedure/anesthetic and documented any changes. Performed airway and anesthesia risk assessments. Anesthesia Type Anesthesia Type: MAC (see written pre anesthesia record for full assessment) Anesthesia Focused Assessment* Temperature: 98.4 F Pulse Rate: 68 Blood Pressure: 107/68 Respiratory Rate: 16 Pulse Ox: 100 Airway Assessment Mouth opens: >3 cm Mallampati Score: II Focused Labs Anesthesia Preop lab: CBC WBC 6.2 K/mm3 (4.4-11.0) 12/02/23 07:33 RBC 4.35 M/mm3 (4.2-5.4) 12/02/23 07:33 Hgb 12.9 g/dL (12.0-15.0) 12/02/23 07:33 Hct 39.4 % (37-47) 12/02/23 07:33 Plt Count 288 K/mm3 (150-450) 12/02/23 07:33 CHEMISTRY Potassium 4.2 mmol/L (3.5-5.1) 12/02/23 07:33 Sodium 136 mmol/L (136-145) 12/02/23 07:33 Magnesium 2.0 mg/dL (1.6-2.6) 11/15/22 13:26 Phosphorus 3.1 mg/dL (2.5-4.9) 12/02/23 07:33 BUN 13 mg/dL (7-18) 12/02/23 07:33 Creatinine 0.81 mg/dL (0.55-1.02) 12/02/23 07:33 Glucose 110 mg/dL (74-106) H 12/02/23 07:33 TSH 2.82 uIU/mL (0.358-3.74) 11/15/22 13:26 COAG Urine Test Negative Negative 04/26/24 08:25 Pre-Assessment Diagnosis/Proposed Procedure Planned Operative Procedure(s): CSCOPE OA Anesthesia History Anesthesia History - lead process engineer: Anesthesia History - lead process engineer Hx Hospitalization No 04/22/24 15:48 Any Problems With Anesthesia No 04/22/24 15:48 Cholinesterase deficiency No 04/22/24 15:48 You/Your Family Experience No 04/22/24 15:48 fever (hyperthermia) with Relationship Recent Exposure to Contagious No 04/26/24 08:41 Disease Does patient have nerve No 04/22/24 15:48 stimulator Patient instructed to have device shut off --Does patient have Pacemaker No 04/26/24 08:41 or ICD? When Was Last Pacemaker Check QUESTION #4 FULL TEXT: You/Your Family Experience fever (hyperthermia) with Anesthesia Last Oral Intake Last Oral intake: Last Oral Intake NPO since 05:15 04/26/24 08:41 Meds taken in AM with sips of No 04/26/24 08:41 water? Meds patient instructed to take am of surgery PONV PONV - lead process engineer: PONV - lead process engineer Female Yes 04/22/24 15:48 HX of Motion Sickness Yes 04/22/24 15:48 HX of N/V After Surgery No 04/22/24 15:48 Non-Smoker Yes 04/22/24 15:48 Duration of Surgery greater No 04/22/24 15:48 than 60 minutes Number of Risk Factors 3 04/22/24 15:48 PONV Score Moderate Risk 04/22/24 15:48 Height & Weight Height & Weight: Anesthesia: Height & Weight Height 5 ft 6 in 04/26/24 08:41 Weight: 72 kg 04/26/24 08:41 Body Mass Index (BMI) 25.6 04/26/24 08:41 Respiratory Assessment Respiratory Assessment - lead process engineer: Respiratory Tract Infection Hx - lead process engineer Hx Respiratory Tract Infection No 04/22/24 15:48 STOP Sleep Apnea STOP Sleep Apnea - lead process engineer: STOP Sleep Apnea - lead process engineer Hx Hypertension No 04/22/24 15:48 Hx Sleep Apnea No 04/22/24 15:48 CPAP BIPAP Do you snore loudly (louder No 04/22/24 15:48 than talking or can be heard Do you often feel tired/ No 04/22/24 15:48 fatigued/ sleepy during daytime? Has anyone observed you stop No 04/22/24 15:48 breathing during sleep? STOP Results Negative 04/22/24 15:48 QUESTION #5 FULL TEXT : Do you snore loudly (louder than talking or can be heard through closed doors)? 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 Specify any problems Hx of Preganancy in last 3 No 04/22/24 15:48 Months Nurse Filling Out Transfusion DSCHRIBER 04/22/24 15:48 & Questions: Date: 04/22/24 04/22/24 15:48 Time: 15:48 04/22/24 15:48 Patient unable to answer at this time (ie. confused, unrespo /Reproduction History /Reproductive History - lead process engineer: /Reproductive Hx- lead process engineer Hx Now No 04/22/24 15:48 Gestational Age (in weeks): EDC: Hx Hx Para Hx Section SAB No 04/22/24 15:48 PFSH Medical History Alcohol use Restless legs Migraine headache Non-smoker Anxiety Incomplete uterovaginal prolapse Home Medications ?Medication ?Instructions ?Recorded ?Last Taken ?Type multivitamin 1 tab PO DAILY 04/25/20 Unknown History omega-3 fatty acids-fish oil 360 1 cap PO DAILY 02/06/24 04/01/24 History mg-1,200 mg capsule (Fish Oil) Allergy/AdvReac Type Severity Reaction Status Date / Time Penicillins Allergy Rash Verified 04/26/24 08:39 Family History Mother Heart disease Grandmother Breast cancer Father Hypercholesterolemia Surgical History vein ablation Hx of LASIK Social History household members: spouse current occupational status: employed current occupation: [employer] Smoking Status: Never smoker alcohol intake: never substance use type: does not use caffeine: Yes what type of physical activity do you participate in: walking seatbelt use: always do you feel safe at home: Yes additional social history: Spouse Jad Review of Systems (Anesthesia) ROS Narrative System reviewed and no additional complaints, except as documented.
--- NOTE | 2024-04-26 08:53 | H&P.OPEN ---
[facility] - General General Date of Service: 04/26/24 HPI Narrative KARYN AMBROSIO, is a 44 F who presents for screening colonoscopy. Patient never had previous colonoscopy. Patient denies any family history of colon cancer. Patient has bowel movements about every 3 days denies any blood. Patient denies any chronic abdominal pain/nausea/vomiting/reflux. [facility] Medical History Alcohol use Restless legs Migraine headache Non-smoker Anxiety Incomplete uterovaginal prolapse Home Medications ?Medication ?Instructions ?Recorded ?Last Taken ?Type multivitamin 1 tab PO DAILY 04/25/20 Unknown History omega-3 fatty acids-fish oil 360 1 cap PO DAILY 02/06/24 04/01/24 History mg-1,200 mg capsule (Fish Oil) Allergy/AdvReac Type Severity Reaction Status Date / Time Penicillins Allergy Rash Verified 04/26/24 08:39 Family History Mother Heart disease Grandmother Breast cancer Father Hypercholesterolemia Surgical History vein ablation Hx of LASIK Social History household members: spouse current occupational status: employed current occupation: [employer] Smoking Status: Never smoker alcohol intake: never substance use type: does not use caffeine: Yes what type of physical activity do you participate in: walking seatbelt use: always do you feel safe at home: Yes additional social history: Spouse Jad Past Medical/Surgical History Planned Operation Planned Operative Procedure(s): CSCOPE OA S.O.S: No Previous Hospitalizations/Surgeries HX Hospitalizations: No HX of Surgeries: lasik Any Problems With Anesthesia: No You/Your Family Experience Fever (Hyperthermia) With Anes: No Cholinesterase deficiency: No Cardiovascular Hx Chest Pain within Last 2 months: No Hx of Irregular Heartbeat and/or Afib: No Hx Heart Attack: No Hx Congestive Heart Failure: No Hx Rheumatic Fever: No Hx Hypertension: No Hx Internal Defibrillator: No Hx Pacemaker: No Hx Cardiac Surgery/Stents/Etc.: No Hx Stress Test: No Hx Pain in Legs when Walking/Leg Cramps: Yes (right leg) Respiratory Chronic Cough: No HX of Shortness of Breath: No Hoarseness: No Hx Chronic Obstructive Pulmonary Disease (COPD): No Hx Asthma: No Hx Emphysema: No Hx Sleep Apnea: No Hx Respiratory Tract Infection/Cold (presently): No Do You Snore Loudly (louder than talking or can be heard): No Do You Often Feel Tired/ Fatigued/ Sleepy Dring Daytime?: No Has Anyone Observed You Stop Breathing During Sleep?: No Result (for STOP score): Negative Hx Smoking: No Smoking Status: Never smoker Gastrointestinal Hx Gastrointestinal Disorders: No Hx Gastrointestinal Bleed: No Hx Ulcer: No Hx Hiatal Hernia: No Difficulty Chewing/Swallowing: No Special diet followed at home: No Hx Unplanned Weight Loss of 20#: No HX Unplanned Weight Gain of 20#: No Neurological Hx Seizures: No HX Syncope/Blackout Spells/Unconsciousness: No Hx Transient Ischemic Attacks (TIA): No Hx Multiple Sclerosis: No Hx Parkinson's Disease: No Hx Head/Neck Injury: No Hx Headaches: No Hx Back Injury/Pain: No Recent Onset of Speech Difficulty: No Restless Legs: No Does patient have nerve stimulator: No Blood Disorder Hx Leukemia: No Bleeding Tendencies: No Hx Deep Vein Thrombosis: No Hx High Cholesterol: No Blood Transmitted Disease: No Hx Hepatitis: No Hx Cirrhosis: No Hx Anemia: No Hx Blood Disorders: No Reproduction : No Is Patient Lactating: No Hx Hysterectomy: No Hx Tubal Ligation: No Are You Post Menopause: No Genitourinary Hx Renal Disease: No Musculoskeletal Hx Arthritis: No Hx Rheumatoid Arthritis: No Hx Gout: No Recent Onset of an Orthopedic Problem: No Endocrine Hx Diabetes: No Thyroid Disease: No Hx Steroid Therapy: No Psycho/Social Hx Substance Use: No Hx Alcohol Use: Yes (occ) Hx Anxiety: No Hx Depression: No Mental Illness: No Hx Dementia: No Miscellaneous Hx Cancer: No Recent Exposure to Contagious Disease: No Hx of C-Diff: No Any Loose Teeth: No Allergies Penicillins Allergy (Verified 04/26/24 08:39) Rash Childhood Discharge Is Pt Admitted From a Fdc, or a Retirement: No After D/C, Where Do you Plan to Go: Return Home Vital Signs Vital Signs Vital Signs: 04/26/24 08:41 04/26/24 08:41 04/26/24 08:45 Temperature 98.4 F 98.4 F Temperature Source Temporal Pulse Rate 68 68 Respiratory Rate 16 16 Respiratory Pattern Normal Blood Pressure 107/68 107/68 Blood Pressure Mean 81 Blood Pressure Source Monitor Blood Pressure Position Semi-Fowlers Blood Pressure Location Left Arm Pulse Ox 100 100 Oxygen Delivery Method Room Air Weight Weight: 158 lb 11.725 oz Body Mass Index (BMI) 25.6 Physical Exam Const alert, oriented x3 and no apparent distress HEENT normocephalic and head/scalp atraumatic Resp normal respiratory effort Cardio regular rate GI soft to palpation and non-tender; Negative for non-distended Palpation: Negative for guarding Extremity no clubbing, cyanosis or edema Skin no rashes or lesions noted Neuro CN's II-XII intact bilaterally Psych mental status grossly normal Assessment & Plan Assessment/Plan (1) Encounter for screening for malignant neoplasm of colon: Surgery Risks - Colonoscopy I discussed with the patient the risks of the procedure: Yes Risks Include but are not Limited To: Risks include but are not limited to: Bleeding, perforation requiring further surgery, inability to complete colonoscopy requiring barium enema.
--- NOTE | 2024-04-26 10:31 | PCM.POST.ANE ---
Anesthesia: Postop Eval I Current Vital Signs Temperature: 98.2 F Pulse Rate: 86 Blood Pressure: 109/76 Respiratory Rate: 16 Pulse Ox: 99 Oxygen Delivery Method: Room Air Assessment Airway patent: Yes Spontaneous unlabored respirations: Yes Mental status: Awake and Calm nausea: No Vomiting: No Anesthesia Complication: No Fluid Hydration Crystalloid volume administer (ml): 20 Total IV fluid infused: 20 Progress Note Anesthesia document: Postop Eval 1 completed: Yes
--- NOTE | 2024-04-26 10:51 | POSTOPAN2_ITS ---
Anesthesia Postop Eval I Sum Postop Eval Completion status Anesthesia document: Postop Eval 1 completed: Yes Anesthesia Postop Eval I Summary Anesthesia Postop Eval I Summary: Anesthesia Postop Eval I: Assessment Summary Airway patent Yes 04/26/24 10:51 FLOTATION OPERATOR.[email or web address] Spontaneous unlabored Yes 04/26/24 10:51 FLOTATION OPERATOR.MDOT respirations Mental status Awake,Calm 04/26/24 10:51 FLOTATION OPERATOR.MDOT nausea No 04/26/24 10:51 FLOTATION OPERATOR.MDOT Vomiting No 04/26/24 10:51 FLOTATION OPERATOR.MDOT Anesthesia Postop Eval I: Fluid Summary Crystalloid volume administer 20 04/26/24 10:51 FLOTATION OPERATOR.MDOT (ml) Colloids volume administered ( ml) Blood Product volume administered (ml) Total IV fluid infused 20 04/26/24 10:51 FLOTATION OPERATOR.MDOT Anesthesia Postop Eval I: Summary Notes Anesthesia Complication No 04/26/24 10:51 FLOTATION OPERATOR.MDOT Anesthesia Complication Comment: Post-operative progress note Anesthesia: Postop Eval II Evaluation Mental status: Awake and Calm Pain Level: 0 nausea: No Vomiting: No Complications Anesthesia Complication: No
--- NOTE | 2024-04-26 10:51 | PCM.POST.ANE ---
Anesthesia: Postop Eval I Current Vital Signs Temperature: 97 F Pulse Rate: 70 Blood Pressure: 110/72 Respiratory Rate: 16 Pulse Ox: 100 Oxygen Delivery Method: Room Air Assessment Airway patent: Yes Spontaneous unlabored respirations: Yes Mental status: Awake and Calm nausea: No Vomiting: No Anesthesia Complication: No Fluid Hydration Crystalloid volume administer (ml): 20 Total IV fluid infused: 20 Progress Note Anesthesia document: Postop Eval 1 completed: Yes
--- NOTE | 2024-04-26 10:51 | PCM.POSTANE2 ---
Anesthesia Postop Eval I Sum Postop Eval Completion status Anesthesia document: Postop Eval 1 completed: Yes Anesthesia Postop Eval I Summary Anesthesia Postop Eval I Summary: Anesthesia Postop Eval I: Assessment Summary Airway patent Yes 04/26/24 10:51 [email or web address] [email or web address].[email or web address] Spontaneous unlabored Yes 04/26/24 10:51 DRYWALL TAPER.MDOT respirations Mental status Awake,Calm 04/26/24 10:51 DRYWALL TAPER.MDOT nausea No 04/26/24 10:51 DRYWALL TAPER.MDOT Vomiting No 04/26/24 10:51 DRYWALL TAPER.MDOT Anesthesia Postop Eval I: Fluid Summary Crystalloid volume administer 20 04/26/24 10:51 DRYWALL TAPER.MDOT (ml) Colloids volume administered ( ml) Blood Product volume administered (ml) Total IV fluid infused 20 04/26/24 10:51 DRYWALL TAPER.MDOT Anesthesia Postop Eval I: Summary Notes Anesthesia Complication No 04/26/24 10:51 DRYWALL TAPER.MDOT Anesthesia Complication Comment: Post-operative progress note Anesthesia: Postop Eval II Evaluation Mental status: Awake and Calm Pain Level: 0 nausea: No Vomiting: No Complications Anesthesia Complication: No
--- NOTE | 2024-04-26 15:27 | OP.COLON_ITS ---
Patient Name: Meaghan Rodriguez Procedure Date: 04/26/2024 10:04 AM Date of : 1980 Age: 44 Procedure: Colonoscopy Indications: Screening for colorectal malignant neoplasm Providers: Tatianna Givens MD Medicines: Monitored Anesthesia Care Patient Profile: This is a 44 year old female. Last Colonoscopy: none. The patient's first colonoscopy is today. Complications: No immediate complications. Procedure: Pre-Anesthesia Assessment: - Prior to the procedure, a History and Physical was performed, and patient medications and allergies were reviewed. The patient's tolerance of previous anesthesia was also reviewed. The risks and benefits of the procedure and the sedation options and risks were discussed with the patient. All questions were answered, and informed consent was obtained. Prior Anticoagulants: The patient has taken no anticoagulant or antiplatelet agents. ASA Grade Assessment: Per anesthesia. After reviewing the risks and benefits, the patient was deemed in satisfactory condition to undergo the procedure. After I obtained informed consent, the scope was passed under direct vision. Throughout the procedure, the patient's blood pressure, pulse, and oxygen saturations were monitored continuously. The colonoscope was introduced through the anus and advanced to the cecum, identified by the appendiceal orifice, ileocecal valve and palpation. The colonoscopy was performed without difficulty. The patient tolerated the procedure well. The quality of the bowel preparation was good. Scope In: 10:11:00 AM Scope Withdrawal Time 0 hours 4 minutes 51 seconds Scope Out: 10:25:03 AM Total Procedure Duration Time 0 hours 14 minutes 3 seconds Findings: The perianal and digital rectal examinations were normal. The entire examined colon appeared normal on direct and retroflexion views. Impression: - The entire examined colon is normal on direct and retroflexion views. - No specimens collected. Recommendation: - Discharge patient to home. - Resume previous diet. - Continue present medications. - Repeat colonoscopy in 10 years for screening purposes. Procedure Code(s): --- Professional --- G0121, PT, Colorectal cancer screening; colonoscopy on individual not meeting criteria for high risk Diagnosis Code(s): --- Professional --- Z12.11, Encounter for screening for malignant neoplasm of colon CPT copyright 2021 [employer]. All rights reserved. The codes documented in this report are preliminary and upon sports commentator review may be revised to meet current compliance requirements. MD Tatianna Hopkins MD 04/26/2024 10:29:57 AM This report has been signed electronically. Number of Addenda: 0 Note Initiated On: 04/26/2024 10:04 AM
--- NOTE | 2024-04-26 15:27 | OP.CCLET_ITS ---
04/26/2024 Keyur Bales [address] [place] [address] Re : Colonoscopy procedure for Meaghan Rodriguez Dear Dr. Bales This procedure was performed on Friday, April 26, 2024. My impressions and recommendations are as follows: Impressions : - The entire examined colon is normal on direct and retroflexion views. - No specimens collected. Recommendations : - Discharge patient to home. - Resume previous diet. - Continue present medications. - Repeat colonoscopy in 10 years for screening purposes. My findings are described in the full procedure note, which is enclosed. If I can be of further assistance, please feel free to contact me at Doctor phone number(s): , Work: . Sincerely, MD Tatianna Hopkins MD 04/26/2024 10:29:57 AM This report has been signed electronically.
== END 2024-04-26 11:08 | disposition home or self-care (01) ==
LOC: EN 08:20 → AC 08:20
PROVIDERS: Anesthesiology; PCP Family Medicine; Referring Provider Family Medicine; Visit Provider Surgery
PROC: 0DJD8ZZ Inspection of Lower Intestinal Tract, Via Natural or Artificial Opening Endoscopic (ICD-10-PCS; CPT 45378; principal; 2024-04-26 09:25)
DX: Z12.11 Encounter for screening for malignant neoplasm of colon (principal)
CPT/HCPCS: 45378; 81025; A4216

== ENCOUNTER 2024-05-05 11:34 | Outpatient (RCR) | payer OTHER, SELFPAY | END 2024-05-06 23:59 | LOC: NS 11:34 | PROVIDERS: PCP Family Medicine; Referring Provider Family Medicine; Visit Provider Family Medicine | DX: Z71.3 Dietary counseling and surveillance (principal) | CPT/HCPCS: 97803 ==

== ENCOUNTER 2024-06-14 11:33 | Outpatient (RCR) | payer OTHER, SELFPAY | END 2024-07-06 23:59 | LOC: NS 11:33 | PROVIDERS: PCP Family Medicine; Referring Provider Family Medicine; Visit Provider Family Medicine | DX: Z71.3 Dietary counseling and surveillance (principal) | CPT/HCPCS: 97803 ==

== ENCOUNTER → 2024-07-21 | Outpatient (CLI) | payer OTHER, SELFPAY ==
--- NOTE | 2024-07-21 14:39 | BI_ITS ---
MAMMOGRAPHY - BILATERAL SCREENING REASON FOR EXAM: Female, 44 years old. Routine annual screening examination. PERTINENT HISTORY: Non-contributory. TECHNIQUE: Digital bilateral breast ingrid (3D mammographic acquisition) in the CC and MLO projections. 2-D mediolateral oblique (MLO) and craniocaudad (CC) views of both breasts were obtained. CAD: Full Field Digital Mammography with Computer Added Detection was performed. COMPARISON: Comparison is made with prior study dated May 26, 2023 and May 17, 2022. FINDINGS: Breast Composition: The breasts are extremely dense, which lowers the sensitivity of mammography. There are no dominant masses or suspicious calcifications. No other significant abnormalities are identified. There has been no significant change since the prior study. BI/SCRN MAMM (CAD)W/INGRID BILAT IMPRESSION: Stable bilateral screening mammogram. Yearly follow-up mammogram recommended. (A) ASSESSMENT CATEGORY: BIRADS Category 1: Negative. A letter regarding these results will be sent to the patient by the facility within 30 days. Approximately 10% of breast cancers are not detected by mammography. A normal mammogram should not delay biopsy of a clinically suspicious abnormality. [id number] Electronically Signed: Hiren Corrales MD at 15:14 EST ,
== END | disposition home or self-care (01) ==
LOC: OPBI 14:38
PROVIDERS: PCP Family Medicine; Referring Provider Obstetrics & Gynecology; Visit Provider Obstetrics & Gynecology
DX: Z12.31 Encounter for screening mammogram for malignant neoplasm of breast (principal)
CPT/HCPCS: 77063; 77067

== ENCOUNTER 2024-08-09 11:30 | Outpatient (RCR) | payer OTHER, SELFPAY | END 2024-09-03 23:59 | LOC: NS 11:30 | PROVIDERS: PCP Family Medicine; Referring Provider Family Medicine; Visit Provider Family Medicine | DX: Z71.3 Dietary counseling and surveillance (principal) | CPT/HCPCS: 97803 ==

== ENCOUNTER → 2024-08-11 | Outpatient (CLI) | payer OTHER, SELFPAY ==
[2024-08-11 06:46] LABS: Absolute Lymphocyte Count 2.08 X10^3/uL (0.83-4.51); Absolute Neutrophil Count 3.4 X10^3/uL (2.0-7.7); Basophil# 0.08 X10^3/uL; Basophil% 1.3 % (0-1); Eosinophil# 0.12 X10^3/uL; Hemoglobin 13.1 g/dL (12.0-15.0); Lymphocyte # 2.08 X10^3/ul (0.83-4.51); Lymphocyte % 33.9 % (19-41); Mean Corpuscular Volume 90.7 fL (81-99); Mean Platelet Vol. 10.1 fl (6.2-12.0); Monocyte# 0.42 X10^3/uL; Monocyte% 6.8 % (0-10); NRBC Flagged by Analyzer 0 % (0-5); Neutrophil # 3.41 X10^3/uL (2.7-7.7); Neutrophil % 55.5 % (47-70); Platelet Count 309 K/mm3 (150-450); RBC Distribution Width SD 42.9 fl (35.1-43.9); Red Blood Count 4.52 M/mm3 (4.2-5.4); White Blood Count 6.1 K/mm3 (4.4-11.0)
[2024-08-11 07:12] LABS: ALB/GLOB Ratio 0.9 RATIO (0.9-2.4); AST(SGOT) 13 U/L (15-37); Alanine Aminotransfer ALT/SGPT 22 U/L (13-56); Albumin, Serum 3.7 g/dL (3.2-5.0); Alkaline Phosphatase 60 U/L (45-117); Anion Gap 5 (5-15); BUN 15 mg/dL (7-18); BUN/Creat Ratio 20.5 RATIO (10-20); Calcium,Total 8.9 mg/dL (8.5-10.1); Chloride 108 mmol/L (98-107); Creatinine, Serum 0.73 mg/dL (0.55-1.02); EST Glomerular Filtration Rate 91 mL/min (>60); Est Glom Filt Rate - Afr Amer 110 mL/min (>60); Estradiol 64.6 pg/mL; Free T3 2.8 pg/mL (2.18-3.98); Globulin 4.2 g/dL (2.2-4.2); Glucose 105 mg/dL (74-106); Potassium 4.2 mmol/L (3.5-5.1); Protein, Total 7.9 g/dL (6.4-8.2); Sodium Level 139 mmol/L (136-145); T4 Free Direct 0.82 ng/dL (0.76-1.46)
[2024-08-11 09:17] LABS: Vitamin B12 503 pg/mL (211-911); Vitamin D,25 Hydroxy 22.4 ng/mL
[2024-08-12 04:07] LABS: DHEA Sulfate 94.6 ug/dL (41.2-243.7); PROGESTERONE 0.2 ng/mL (.)
== END | disposition home or self-care (01) ==
LOC: LAB 06:05
PROVIDERS: PCP Family Medicine; Referring Provider Specialist; Visit Provider Specialist
DX: E55.9 Vitamin D deficiency, unspecified (principal); N95.8 Other specified menopausal and perimenopausal disorders; R53.83 Other fatigue
CPT/HCPCS: 36415; 80053; 82306; 82607; 82627; 82670; 84144; 84403; 84439; 84443; 84481; 85025; 82626

== ENCOUNTER → 2024-09-20 | Outpatient (CLI) | payer OTHER, SELFPAY ==
[2024-09-24 14:08] LABS: HPV APTIMA, High Risk Negative (Negative)
== END | disposition home or self-care (01) ==
LOC: LABSPEC 16:09
PROVIDERS: PCP Family Medicine; Referring Provider Obstetrics & Gynecology; Visit Provider Obstetrics & Gynecology
DX: Z12.4 Encounter for screening for malignant neoplasm of cervix (principal)
CPT/HCPCS: 87624; 88175; G0145

== ENCOUNTER 2024-09-22 11:34 | Outpatient (RCR) | payer OTHER, SELFPAY | END 2024-10-04 23:59 | LOC: NS 11:34 | PROVIDERS: PCP Family Medicine; Referring Provider Family Medicine; Visit Provider Family Medicine | DX: Z71.3 Dietary counseling and surveillance (principal) | CPT/HCPCS: 97803 ==

== ENCOUNTER → 2024-09-24 | Outpatient (CLI) | payer OTHER, SELFPAY ==
[2024-09-24 07:11] LABS: Estradiol 46.2 pg/mL
[2024-09-25 04:07] LABS: PROGESTERONE 1.9 ng/mL (.)
== END | disposition home or self-care (01) ==
LOC: LAB 06:17
PROVIDERS: PCP Family Medicine; Referring Provider Nurse Practitioner Family; Visit Provider Nurse Practitioner Family
DX: E28.8 Other ovarian dysfunction (principal)
CPT/HCPCS: 36415; 82670; 84144; 84403

== ENCOUNTER 2024-11-02 11:33 | Outpatient (RCR) | payer OTHER, SELFPAY | END 2024-11-03 23:59 | LOC: NS 11:33 | PROVIDERS: PCP Family Medicine; Referring Provider Family Medicine; Visit Provider Family Medicine | DX: Z71.3 Dietary counseling and surveillance (principal) | CPT/HCPCS: 97803 ==

== ENCOUNTER 2024-12-15 11:26 | Outpatient (RCR) | payer OTHER, SELFPAY | END 2025-01-03 23:59 | LOC: NS 11:26 | PROVIDERS: PCP Family Medicine; Referring Provider Family Medicine; Visit Provider Family Medicine | DX: Z71.3 Dietary counseling and surveillance (principal) | CPT/HCPCS: 97803 ==

== ENCOUNTER 2025-01-26 11:31 | Outpatient (RCR) | payer OTHER, SELFPAY | END 2025-02-03 23:59 | LOC: NS 11:31 | PROVIDERS: PCP Family Medicine; Referring Provider Family Medicine; Visit Provider Family Medicine | DX: Z71.3 Dietary counseling and surveillance (principal) | CPT/HCPCS: 97803 ==

== ENCOUNTER 2025-03-16 11:23 | Outpatient (RCR) | payer OTHER, SELFPAY | END 2025-04-05 23:59 | LOC: NS 11:23 | PROVIDERS: PCP Family Medicine; Referring Provider Family Medicine; Visit Provider Family Medicine | DX: Z71.3 Dietary counseling and surveillance (principal) | CPT/HCPCS: 97803 ==

== ENCOUNTER → 2025-03-24 | Outpatient (CLI) | payer SELFPAY ==
--- NOTE | 2025-03-24 09:46 | BD_ITS ---
PROCEDURE: BODY COMPOSITION - INITIAL 03/24/2025 REASON FOR EXAM: SCREENING TECHNIQUE: Procedure Code: [email or web address] Modality: DX Procedure: BODY COMPOSITION - INITIAL COMPARISON: None FINDINGS: Body composition examination was performed. BD/Body Composition - Initial IMPRESSION: Please refer to the tables provided by the study. Reading Location: [place] [id number]
== END | disposition home or self-care (01) ==
PROVIDERS: PCP Family Medicine; Referring Provider Family Medicine; Visit Provider Family Medicine
DX: Z00.00 Encounter for general adult medical examination without abnormal findings (principal)
CPT/HCPCS: 76499

== ENCOUNTER → 2025-03-29 | Outpatient (CLI) | payer OTHER, SELFPAY ==
[2025-03-29 08:56] LABS: Hematocrit 39.1 % (37-47); Hemoglobin 13.2 g/dL (12.0-15.0); Immature Granulocytes Count 0.030 X10^3/uL (0.0-0.0); Mean Corp Hgb Conc 33.8 g/dL (32-36); Mean Corpuscular Volume 87.7 fL (81-99); Mean Platelet Vol. 10.2 fl (6.2-12.0); NRBC Flagged by Analyzer 0 % (0-5); Platelet Count 341 K/mm3 (150-450); RBC Distribution Width CV 12.9 % (11.6-14.6); RBC Distribution Width SD 41.1 fl (35.1-43.9); Red Blood Count 4.46 M/mm3 (4.2-5.4); White Blood Count 8.1 K/mm3 (4.4-11.0)
[2025-03-29 09:39] LABS: AST(SGOT) 18 U/L (<=31); Alanine Aminotransfer ALT/SGPT 16 U/L (<=34); Albumin, Serum 4.6 g/dL (3.5-5.0); Alkaline Phosphatase 60 U/L (35-104); Anion Gap 13 (5-15); BUN 14 mg/dL (4-19); BUN/Creat Ratio 21.1 RATIO (10-20); Calcium,Total 9.5 mg/dL (7.6-11.0); Carbon Dioxide 20.8 mmol/L (21.0-32.0); Chloride 102 mmol/L (98-108); Ferritin 52 ng/mL (22-378); Follicle Stimulating Hormone 6.2 mIU/mL; Free T3 3.3 pg/mL (2.18-3.98); Globulin 3.0 g/dL (2.2-4.2); Glucose 102 mg/dL (70-99); Potassium 3.9 mmol/L (3.3-5.1); Vitamin B12 666 pg/mL (180-914); Vitamin D,25 Hydroxy 55.8 ng/mL (30-100)
[2025-04-01 14:08] LABS: Testosterone, % Free 1.64 % (0.50-2.80); Testosterone, Free 0.92 ng/dL (0.10-0.85)
== END | disposition home or self-care (01) ==
LOC: LAB 08:22
PROVIDERS: PCP Family Medicine
DX: R68.82 Decreased libido (principal); E07.9 Disorder of thyroid, unspecified; R53.83 Other fatigue; Z13.21 Encounter for screening for nutritional disorder
CPT/HCPCS: 36415; 80053; 82306; 82607; 82670; 82728; 83001; 84270; 84402; 84403; 84439; 84443; 84481; 85025; 86376

== ENCOUNTER 2025-04-25 11:31 | Outpatient (RCR) | payer OTHER, SELFPAY | END 2025-05-06 23:59 | LOC: NS 11:31 | PROVIDERS: PCP Family Medicine; Referring Provider Family Medicine; Visit Provider Family Medicine | DX: Z71.3 Dietary counseling and surveillance (principal) | CPT/HCPCS: 97803 ==

== ENCOUNTER → 2025-06-17 | Outpatient (CLI) | payer OTHER, SELFPAY ==
--- NOTE | 2025-06-17 09:07 | VDLE_ITS ---
Reason For Study Reason For Study: Right leg pain RIGHT LEFT CFV is compressible, spontaneous, phasic, competent CFV is compressible, spontaneous, phasic, competent, and demonstrates normal augmentation. and demonstrates normal augmentation. FV is compressible, spontaneous, phasic, competent and demonstrates normal augmentation. POP V is compressible, spontaneous, phasic, competent and demonstrates normal augmentation. T/P Trunk is compressible. PTV is compressible. RT PerV is compressible. GSV and SSV previous EVLA. SFJ is competent and measures 0.83 cm. ASV mid thigh is INCOMPETENT for greater than 0.5 seconds and measures 0.20 x 0.23 cm. Extends down to calf and across cornelius. ASV proximal calf is INCOMPETENT for greater than 0.5 seconds and measures 0.25 x 0.25 cm. Extends down to SSV distal SSV distal is competent and measures 0.30 x 0.34 cm. Procedure This is a venous duplex using B-mode, color flow and spectral Doppler. Exam performed in department. Patient was scanned in reverse Trendelenburg position during reflux assessment. VL/Venous Duplex US, Unilateral Interpretation Summary Deep veins of the right lower extremity are patent and compressible segmentally . There is no evidence of right lower extremity deep vein thrombosis. Positive for reflux in the right thigh accessory saphenous vein and calf access ory saphenous vein. Ordering Physician: Shakila Natarajan Referring Physician: Keyur Bales Performed By: Nicci Thornton RVT
== END | disposition home or self-care (01) ==
LOC: CVS 09:07
PROVIDERS: PCP Family Medicine; Referring Provider Physician Assistant; Visit Provider Physician Assistant
DX: I83.899 Varicose veins of unspecified lower extremity with other complications (principal); I87.2 Venous insufficiency (chronic) (peripheral)
CPT/HCPCS: 93971

== ENCOUNTER → 2025-06-27 | Outpatient (CLI) | payer OTHER, SELFPAY ==
--- OUTSIDE RECORDS SUMMARY | 2025-06-27 06:05 | XMS RPT_ITS | CCD ---
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 [facility] [address] [place], [address] Chloride [Moles/Vol] 102 mmol/L Normal 98-108 [facility] Comment on above: Performed By: #### L 501.17197, L506.1000, L501.9520, L509.3000, L801.2600, L100.0100, L503.0105, L3300.1500, L506.0400, L500.4050, L3300.1750 #### [facility] [address] [place], [address] CO2 [Moles/Vol] 20.8 mmol/L Low 21.0-32.0 [facility] Comment on above: Performed By: #### L 501.85047, L506.1000, L501.9520, L509.3000, L801.2600, L100.0100, L503.0105, L3300.1500, L506.0400, L500.4050, L3300.1750 #### [facility] [address] [place], [address] Creatinine [Mass/Vol] 0.64 mg/dL Low 0.70-1.20 [facility] Comment on above: Performed By: #### L 501.72667, L506.1000, L501.9520, L509.3000, L801.2600, L100.0100, L503.0105, L3300.1500, L506.0400, L500.4050, L3300.1750 #### [facility] [address] [place], [place], [id number] GAP 13 Normal 5-15 [facility] Comment on above: Performed By: #### L 501.36560, L506.1000, L501.9520, L509.3000, L801.2600, L100.0100, L503.0105, L3300.1500, L506.0400, L500.4050, L3300.1750 #### [facility] [address] [place], [address] GFR/1.73 sq M.predicted among non-blacks MDRD (S/P/Bld) [Vol rate/Area] 110 mL/min/{1.73_m2} Normal >60 [facility] Comment on above: Result Comment: mL/m in/1.73m2 CKD-EPI Creatinine Equation (2020) Performed By: #### L 501.59181, L506.1000, L501.9520, L509.3000, L801.2600, L100.0100, L503.0105, L3300.1500, L506.0400, L500.4050, L3300.1750 #### [facility] [address] [place], [place], [id number] Globulin (S) [Mass/Vol] 3.0 g/dL Normal 2.2-4.2 [facility] Comment on above: Performed By: #### L 501.46647, L506.1000, L501.9520, L509.3000, L801.2600, L100.0100, L503.0105, L3300.1500, L506.0400, L500.4050, L3300.1750 #### [facility] [address] [place], [address] Glucose [Mass/Vol] 102 mg/dL High 70-99 [facility] Comment on above: Performed By: #### L 501.61351, L506.1000, L501.9520, L509.3000, L801.2600, L100.0100, L503.0105, L3300.1500, L506.0400, L500.4050, L3300.1750 #### [facility] [address] [place], [address] Potassium [Moles/Vol] 3.9 mmol/L Normal 3.3-5.1 [facility] Comment on above: Performed By: #### L 501.05649, L506.1000, L501.9520, L509.3000, L801.2600, L100.0100, L503.0105, L3300.1500, L506.0400, L500.4050, L3300.1750 #### [facility] [address] [place], [address] Sodium [Moles/Vol] 135 mmol/L Normal 133-145 [facility] Comment on above: Performed By: #### L 501.36443, L506.1000, L501.9520, L509.3000, L801.2600, L100.0100, L503.0105, L3300.1500, L506.0400, L500.4050, L3300.1750 #### [facility] [address] [place], [address] T PROT 7.5 g/dL Normal 5.9-8.4 [facility] Comment on above: Performed By: #### L 501.93117, L506.1000, L501.9520, L509.3000, L801.2600, L100.0100, L503.0105, L3300.1500, L506.0400, L500.4050, L3300.1750 #### [facility] [address] [place], [address] Urea nitrogen [Mass/Vol] 14 mg/dL Normal 4-19 [facility] Comment on above: Performed By: #### L 501.80986, L506.1000, L501.9520, L509.3000, L801.2600, L100.0100, L503.0105, L3300.1500, L506.0400, L500.4050, L3300.1750 #### [facility] [address] [place], [place], [id number] Eosinophil percentageon 03-08 Eosinophils/100 WBC (Bld) 0.7 % 0-5 [facility] Erythrocyte distribution wid th ratioon 03-29-2025 Erythrocyte distribution width (RBC) [Ratio] 12.9 % 11.6-14.6 [facility] Erythrocyte distribution wid th standard deviationon 03-29-2025 Erythrocyte distribution width (RBC) [Ratio] 41.1 fl 35.1-43.9 [facility] Estradiolon 03-29-2025 ESTRADIOL 253.0 pg/mL Normal [facility] Comment on above: Result Comment: FEMA LES ADULT FEMALE: Premenopausal: 15-350 pg/mL(E2 levels vary widely through the menstrual cycle) Postmenopausal: <10 pg/mL RICHIE STAGES MEAN AGE REFERENCE RANGES Stage I(>14 days and prepubertal) 7.1 years Undetectable-20 pg/mLL Stage II 10.5 years Undetectable-24 pg/mL Stage III 11.6 years Undetectable-60 pg/mL Stage IV 12.3 years 15-85 pg/mL Stage V 14.5 years 15-350 pg/mL Puberty onset (transition from Richie stage I to Richie stage II) occurs for girls at a median age of 10.5 (/- 2) years. There is evidence that it may occur up to 1 year earlier in obese girls and in girls. Progression through Richie stages is variable. Richie stage V (adult) should be reached by age 18. Performed By: #### L 501.71305, L506.1000, L501.9520, L509.3000, L801.2600, L100.0100, L503.0105, L3300.1500, L506.0400, L500.4050, L3300.1750 #### [facility] [address] [place], [address] Ferritinon 03-29-2025 Ferritin [Mass/Vol] 52 ng/mL Normal 22-378 [facility] Comment on above: Performed By: #### L 501.78130, L506.1000, L501.9520, L509.3000, L801.2600, L100.0100, L503.0105, L3300.1500, L506.0400, L500.4050, L3300.1750 #### [facility] [address] [place], [address] Follicle Stimulating Hormone on 03-29-2025 FSH 6.2 mIU/mL Normal [facility] Comment on above: Result Comment: FEMA LE: Follicular: 1.4 - 18.1 mIU/mL Midcycle: 3.4 - 33.4 mIU/mL Luteal: 1.5 - 9.1 mIU/mL Post Menopause: 23.0 - 116.3 mIU/mL MALE: 1.4 - 18.1 mIU/mL Performed By: #### L 501.60210, L506.1000, L501.9520, L509.3000, L801.2600, L100.0100, L503.0105, L3300.1500, L506.0400, L500.4050, L3300.1750 #### [facility] [address] [place], [address] Free T3on 03-29-2025 Free T3 [Mass/Vol] 3.3 pg/mL Normal 2.18-3.98 [facility] Comment on above: Order Comment: N Performed By: #### L 501.69982, L506.1000, L501.9520, L509.3000, L801.2600, L100.0100, L503.0105, L3300.1500, L506.0400, L500.4050, L3300.1750 #### [facility] [address] [place], [address] Free T3 [Mass/Vol] 3.3 pg/mL 2.18-3.98 [facility] Free testosterone percentage on 03-29-2025 Testosterone Free/Testosterone.total [Mass fraction] 1.64 % 0.50-2.80 [facility] Glomerular filtration rate ( GFR) estimation/1.73 sq m using serum, plasma, or whole bon 03-29-2025 GFR/1.73 sq M.predicted among non-blacks MDRD (S/P/Bld) [Vol rate/Area] 110 mL/min/{1.73_m2} >60 [facility] Comment on above: mL/min/1.73m2 CKD-EP I Creatinine Equation (2020) Hematocrit Auto (Bld) [Volum e fraction]on 03-29-2025 Hematocrit (Bld) [Volume fraction] 39.1 % 37-47 [facility] Hemoglobin measurementon Hemoglobin (Bld) [Mass/Vol] 13.2 g/dL 12.0-15.0 [facility] Immature granulocytes/100 WB C Auto (Bld)on 03-29-2025 Immature granulocytes/100 WBC (Bld) 0.400 % 0.0-0.9 [facility] Comment on above: IG% - Immature Granu locytes (promyelocytes, myelocytes and metamyelocytes) > 1% indicates that a LEFT SHIFT is Present. Laboratory - Chemistry and C hemistry - challengeon 03-29-2025 AST [Catalytic activity/Vol] 18 U/L <32 [facility] MCV (mean corpuscular volume ) determinationon 03-29-2025 MCV (RBC) [Entitic vol] 87.7 fL 81-99 [facility] Mean corpuscular hemoglobin (MCH) determinationon 03-29-2025 MCH (RBC) [Entitic mass] 29.6 pg 27.0-32.0 [facility] Mean corpuscular hemoglobin concentration (MCHC) determinationon 03-29-2025 MCHC (RBC) [Mass/Vol] 33.8 g/dL 32-36 [facility] Mean platelet volume determi nationon 03-29-2025 Platelet mean volume (Bld) [Entitic vol] 10.2 fL 6.2-12.0 [facility] Monocyte percentageon 2024 Monocytes/100 WBC (Bld) 6.7 % 0-10 [facility] Neutrophil percentageon 03-08 Neutrophils/100 WBC (Bld) 69.9 % 47-70 [facility] Nucleated red blood cell per centageon 03-29-2025 Nucleated RBC/100 WBC (Bld) [Ratio] 0 % 0-5 [facility] Platelet counton 03-29-2025 Platelets (Bld) [#/Vol] 341 10*3/uL 150-450 [facility] Potassium measurement (mass/ volume)on 03-29-2025 Potassium (Unsp spec) [Mass/Vol] 3.9 mmol/L 3.3-5.1 [facility] RBC Auto (Bld) [#/Vol]on RBC (Bld) [#/Vol] 4.46 10*6/uL 4.2-5.4 [facility] Serum creatinine measurement (mass/volume)on 03-29-2025 Creatinine [Mass/Vol] 0.64 mg/dL Low 0.70-1.20 [facility] Serum globulin measurementon 03-29-2025 Globulin (S) [Mass/Vol] 3.0 g/dL 2.2-4.2 [facility] Serum glucose measurement (m ass/volume)on 03-29-2025 Glucose [Mass/Vol] 102 mg/dL High 70-99 [facility] Serum or plasma alanine stark otransferase (ALT) measurementon 03-29-2025 ALT [Catalytic activity/Vol] 16 U/L <35 [facility] Serum or plasma albumin aashish urement (mass/volume)on 03-29-2025 Albumin [Mass/Vol] 4.6 g/dL 3.5-5.0 [facility] Serum or plasma albumin/glob ulin mass ratioon 03-29-2025 Albumin/Globulin [Mass ratio] 1.5 {ratio} 0.9-2.4 [facility] Serum or plasma alkaline irasema sphatase measurementon 03-29-2025 ALP [Catalytic activity/Vol] 60 U/L 35-104 [facility] Serum or plasma calcium aashish urement (mass/volume)on 03-29-2025 Calcium [Mass/Vol] 9.5 mg/dL 7.6-11.0 [facility] Serum or plasma estradiol me asurement after follitropin dose (mass/volume)on 03-29-2025 E2 post dose follitropin [Mass/Vol] 253.0 pg/mL [facility] Comment on above: FEMALES ADULT FEMALE : Premenopausal: 15-350 pg/mL(E2 levels vary widely through the menstrual cycle) Postmenopausal: <10 pg/mL RICHIE STAGES MEAN AGE REFERENCE RANGES Stage I(>14 days and prepubertal) 7.1 years Undetectable-20 pg/mLL Stage II 10.5 years Undetectable-24 pg/mL Stage III 11.6 years Undetectable-60 pg/mL Stage IV 12.3 years 15-85 pg/mL Stage V 14.5 years 15-350 pg/mL Puberty onset (transition from Richie stage I to Richie stage II) occurs for girls at a median age of 10.5 (/- 2) years. There is evidence that it may occur up to 1 year earlier in obese girls and in girls.Progression through Richie stages is variable. Richie stage V (adult) should be reached by age 18. Serum or plasma ferritin elizabet surement (mass/volume)on 03-29-2025 Ferritin [Mass/Vol] 52 ng/mL 22-378 [facility] Serum or plasma free testost erone measurement (mass/volume)on 03-29-2025 Testosterone Free [Mass/Vol] 0.92 ng/dL High 0.10-0.85 [facility] Serum or plasma sex hormone binding globulin measurement (moles/volume)on 03-29-2025 Sex hormone binding globulin [Moles/Vol] 50.2 nmol/L 24.6-122.0 [facility] Comment on above: Performed at: [address] [id number] Director: Kevin Williamson PhD, Phone: [phone] at: [facility] - [facility] [address] [id number] Director: Reyes Degroot MD, Phone: [phone] Serum or plasma thyroperoxid ase antibody assay (units/volume)on 03-29-2025 TPO Ab Qn [IU]/mL 0-34 [facility] Serum or plasma urea nitroge n measurement (mass/volume)on 03-29-2025 Urea nitrogen [Mass/Vol] 14 mg/dL 4-19 [facility] Sodium levelon 03-29-2025 Sodium [Moles/Vol] 135 mmol/L 133-145 [facility] T4 Free Directon 03-29-2025 T4 FREE DIRECT 1.00 ng/dL Normal 0.76-1.46 [facility] Comment on above: Order Comment: N Performed By: #### L 501.32258, L506.1000, L501.9520, L509.3000, L801.2600, L100.0100, L503.0105, L3300.1500, L506.0400, L500.4050, L3300.1750 #### [facility] [address] [facility] [place], [place], [id number] T4 freeon 03-29-2025 Free T4 [Mass/Vol] 1.00 ng/dL 0.76-1.46 [facility] TSH DL <= 0.005 mIU/L Qnon 0 03-29-2025 TSH Qn 2.380 uIU/mL 0.300-4.200 [facility] Testosterone, totalon 2024 Testosterone [Mass/Vol] 56 ng/dL High 4-50 [facility] Thyroid Stim Hormone (TSH)on 03-29-2025 TSH 2.380 uIU/mL Normal 0.300-4.200 [facility] Comment on above: Performed By: #### L 501.16811, L506.1000, L501.9520, L509.3000, L801.2600, L100.0100, L503.0105, L3300.1500, L506.0400, L500.4050, L3300.1750 #### [facility] [address] [place], [address] Total proteinon 03-29-2025 Protein [Mass/Vol] 7.5 g/dL 5.9-8.4 [facility] Vitamin B12on 03-29-2025 Cobalamin (Vitamin B12) [Mass/Vol] 666 pg/mL Normal 180-914 [facility] Comment on above: Performed By: #### L 501.25105, L506.1000, L501.9520, L509.3000, L801.2600, L100.0100, L503.0105, L3300.1500, L506.0400, L500.4050, L3300.1750 #### [facility] [address] [facility] [place], [address] Vitamin B12 ser/plason 03-29 Cobalamin (Vitamin B12) [Mass/Vol] 666 pg/mL 180-914 [facility] Vitamin D,25 Hydroxyon 03-29 Vitamin D 25-OH 55.8 ng/mL Normal 30-100 [facility] Comment on above: Result Comment: Bella min D Status Deficiency: <20 ng/mL (50nmol/L) Insufficiency: 20-30 ng/mL (50-75 nmol/L) Sufficiency: 30-100 ng/mL (75-250 nmol/L) Toxicity: >100 ng/mL (>250 nmol/L) Performed By: #### L 501.20759, L506.1000, L501.9520, L509.3000, L801.2600, L100.0100, L503.0105, L3300.1500, L506.0400, L500.4050, L3300.1750 #### [facility] [address] [place], [address] White blood cell (WBC) count on 03-29-2025 WBC (Bld) [#/Vol] 8.1 10*3/uL 4.4-11.0 [facility] Body Composition - Initialon 03-24-2025 Body Composition - Initial [facility] Services [address] [place] [address] Body Composition - Initial MR#: [id number] Acct: [id number] Name: KARYN AMBROSIO Rep #: [id number] : 1980 F 45 From: Hiren dunbar MD PCP: Dr. Hay Bales DO Status: REG CLI Study: Body Composition - Initial Date of Exam: 03/24 Exam# [id number] Ordering Dr: Hay Bales DO PROCEDURE: BODY COMPOSITION - INITIAL 03/24/2025 REASON FOR EXAM: SCREENING TECHNIQUE: Procedure Code: BDBODCOMP.I Modality: DX Procedure: BODY COMPOSITION - INITIAL COMPARISON: None FINDINGS: Body composition examination was performed. BD/Body Composition - Initial IMPRESSION: Please refer to the tables provided by the study. Reading Location: [facility]- CC: Dr. Hay Bales DO Body Trimmer: Signed Normal [facility] MR/BMS.BVSon 01-18-2025 MR/BMS.BVS [facility] Vascular Surgery [address] [place] [address] OFFICE VISIT Date of Service: 01/18/25 MR#: [id number] Acct: [id number] Name: KARYN AMBROSIO Rep #: [id number] : 1980 Provider: MELCHOR Odom Age/Sex: 44/F Location: [facility] Status: Signed Intake Vital Signs 12/15/24 11:30 01/18/25 13:21 Height 5 ft 6 in Weight: 165 lb BP 114/75 Blood Pressure Location Lt brachial Position Sitting Respiration 16 Pulse 67 Pulse Source Monitor Temp 98.6 F Temp Source Temporal Pulse Oximetry (%) 100 Oxygen Delivery Method room air Intake Visit Reasons: Varicose Veins Is patient in pain?: No Allergies Penicillins Allergy (Verified 01/18/25 13:23) Rash Medications ???Medication ???Instructions ???Recorded ???Confirmed ???Type multivitamin 1 tab PO DAILY 04/25/20 01/18/25 H istory omega-3 fatty acids-fish oil 360 1 cap PO DAILY 02/06/24 01/18/25 H istory mg-1,200 mg capsule (Fish Oil) B-complex with vitamin C 1 cap PO QDAY 09/20/24 01/18/25 Hi story cholecalciferol (vitamin D3) 250 250 mcg PO QWEEK 09/20/24 01/18/25 History mcg (10,000 unit) capsule Is last menstrual period known: Yes Post menopausal: No Patient : No Have you fallen in the past year?: No PFSH Medical History Alcohol use Restless legs Migraine headache Non-smoker Anxiety Incomplete uterovaginal prolapse Surgical History vein ablation Hx of LASIK Family History Mother Heart disease Grandmother Breast cancer Father Hypercholesterolemia Social History household members: spouse number of children: 2 current occupational status: employed current occupation: [employer] Smoking Status: Never smoker alcohol intake: never substance use type: does not use caffeine: Yes what type of physical activity do you participate in: walking seatbelt use: always do you feel safe at home: Yes additional social history: Spouse Jad HPI HPI HPI: KARYN AMBROSIO, is a 44 F who presents to the office today for evaluation of varicose veins. She had prior R GSV, SSV, ASV EVLA by Dr. Rowan about 5 years ago at that time for persistent burning, aching, itching, and fatigue which was resistant to conservative management measures. She reports these symptoms resolved with this treatment. She has continued to wear compression stockings consistently since then; however, over the last year or so has developed increased deep/persistent pruritus around an increasingly prominent cluster of anterior R cornelius varicosities. Use of conservative management measures has not been very helpful with respect to these symptoms. She has not had any recent imaging. She does not have any history of VTE, venous ulcerations. ROS General General: No weight change, appetite, fatigue, colon cancer, breast cancer or weakness HEENT HEENT: No difficulty swallowing, eye injury, eye surgery, swollen glands or hoarseness Endo Endocrine: No thyroid disease, diabetes mellitus, thyroid cancer, Hair loss, heat intolerance or cold intolerance Skin Skin: No rash or changing moles Musc Musculoskeletal: No back problems, arthritis, rheumatoid arthritis, gout or joint pain Cardio Cardiovascular: No murmur, pacemaker, heart disease, atrial fibrillation, high blood pressure, heart attack, heart stent, palpitations, shortness of breath with exertion or chest pain Psych Psychiatric: No depression, anxiety or hearing voices Resp Respiratory: No shortness of breath, No sleep apnea, No cough, No COPD, No asthma, No emphysema and No wheezing Gastro Gastrointestinal: No abdominal pain, No nausea or vomiting, No diarrhea, No constipation, No blood in stool, No acid reflux, No hemorrhoids, No ulcers, No gallbladder problem and No black,tarry stools Yunior Hematologic: No blood thinners, No blood disorders, No bleeding, No anemia and No blood clots Neuro Neurologic: No system reviewed and no additional complaints, except as documented, No as per HPI, No abnormal gait, No abnormal hearing, No abnormal movements, No abnormal speech, No behavioral changes, No burning sensations, No confusion, No convulsions, No disequilibrium, No dizziness, No localized weakness, No frequent falls, No headache(s), No lack of coordination, No loss of vision, No memory loss, No numbness, No other visual disturbances, No radicular pain, No restless legs, No sensory deficit, No syncope, No tingling, No tremor(s), No weakness and No other Exam Const General: cooperative, comfortable and no acute distress Nutritional Appearance: average (more content not included)... Normal [facility] Absolute lymphocyte countOrd ered By: HEALTH ASSESSMENT on 12-13-2024 Lymphocytes Auto (Unsp spec) [#/Vol] 2.11 10*3/uL 0.83-4.51 [facility] Absolute neutrophil countOrd ered By: HEALTH ASSESSMENT on 12-13-2024 Neutrophils (Bld) [#/Vol] 4.3 10*3/uL 2.0-7.7 [facility] Absolute nucleated red blood cell countOrdered By: HEALTH ASSESSMENT on 12-13-2024 Nucleated RBC (Bld) [#/Vol] 0.00 10*3/uL 0-5 [facility] Anion gap in Serum or Plasma Ordered By: HEALTH ASSESSMENT on 12-13-2024 Anion gap [Moles/Vol] 10 mmol/L 5-15 [facility] BUN/creatinine ratioOrdered By: HEALTH ASSESSMENT on 12-13-2024 Urea nitrogen/Creatinine [Mass ratio] 18.1 mg/mg 10-20 [facility] Bilirubin Test strip Ql (U)O rdered By: HEALTH ASSESSMENT on 12-13-2024 Bilirubin Ql (U) Negative Negative [facility] Bilirubin directOrdered By: HEALTH ASSESSMENT on 12-13-2024 Bilirubin.direct [Mass/Vol] 0.09 mg/dL 0.00-0.30 [facility] Bilirubin, totalOrdered By: HEALTH ASSESSMENT on 12-13-2024 Bilirubin [Mass/Vol] 0.20 mg/dL 0.00-1.30 [facility] CBC, Employeeon 12-13-2024 Absolute Lymph 2.11 X10 3/uL Normal 0.83-4.51 [facility] Comment on above: Performed By: #### L 501.17451, L506.1000, L501.9520, L509.3000, L801.2600, L100.0100, L503.0105, L3300.1500, L506.0400, L500.4050, L3300.1750 #### [facility] [address] [facility] [place], [place], [phone] ([phone]) Absolute Neut 4.3 X10 3/uL Normal 2.0-7.7 [facility] Comment on above: Performed By: #### L 501.21355, L506.1000, L501.9520, L509.3000, L801.2600, L100.0100, L503.0105, L3300.1500, L506.0400, L500.4050, L3300.1750 #### [facility] [address] [facility] [place], [place], [phone] (085) Basophils/100 WBC (Bld) 1.0 % Normal 0-1 [facility] Comment on above: Performed By: #### L 501.43226, L506.1000, L501.9520, L509.3000, L801.2600, L100.0100, L503.0105, L3300.1500, L506.0400, L500.4050, L3300.1750 #### [facility] [address] [place], [address] Eosinophils/100 WBC (Bld) 2.2 % Normal 0-5 [facility] Comment on above: Performed By: #### L 501.39210, L506.1000, L501.9520, L509.3000, L801.2600, L100.0100, L503.0105, L3300.1500, L506.0400, L500.4050, L3300.1750 #### [facility] [address] [place], [place], [phone] ([phone]) Erythrocyte distribution width (RBC) [Ratio] 14.6 % Normal 11.6-14.6 [facility] Comment on above: Performed By: #### L 501.64644, L506.1000, L501.9520, L509.3000, L801.2600, L100.0100, L503.0105, L3300.1500, L506.0400, L500.4050, L3300.1750 #### [facility] [address] [place], [place], [phone] ([phone]) Hematocrit (Bld) [Volume fraction] 40.2 % Normal 37-47 [facility] Comment on above: Performed By: #### L 501.23260, L506.1000, L501.9520, L509.3000, L801.2600, L100.0100, L503.0105, L3300.1500, L506.0400, L500.4050, L3300.1750 #### [facility] [address] [place], [place], [id number] (092) Hemoglobin (Bld) [Mass/Vol] 13.4 g/dL Normal 12.0-15.0 [facility] Comment on above: Performed By: #### L 501.18830, L506.1000, L501.9520, L509.3000, L801.2600, L100.0100, L503.0105, L3300.1500, L506.0400, L500.4050, L3300.1750 #### [facility] [address] [place], [address] Lymphocytes/100 WBC (Bld) 29.4 % Normal 19-41 [facility] Comment on above: Performed By: #### L 501.24338, L506.1000, L501.9520, L509.3000, L801.2600, L100.0100, L503.0105, L3300.1500, L506.0400, L500.4050, L3300.1750 #### [facility] [address] [facility] [place], [place], [phone] (394) MCH (RBC) [Entitic mass] 29.0 pg Normal 27.0-32.0 [facility] Comment on above: Performed By: #### L 501.49218, L506.1000, L501.9520, L509.3000, L801.2600, L100.0100, L503.0105, L3300.1500, L506.0400, L500.4050, L3300.1750 #### [facility] [address] [facility] [place], [address] MCHC (RBC) [Mass/Vol] 33.3 g/dL Normal 32-36 [facility] Comment on above: Performed By: #### L 501.54981, L506.1000, L501.9520, L509.3000, L801.2600, L100.0100, L503.0105, L3300.1500, L506.0400, L500.4050, L3300.1750 #### [facility] [address] [facility] [place], [address] MCV (RBC) [Entitic vol] 87.0 fL Normal 81-99 [facility] Comment on above: Performed By: #### L 501.41533, L506.1000, L501.9520, L509.3000, L801.2600, L100.0100, L503.0105, L3300.1500, L506.0400, L500.4050, L3300.1750 #### [facility] [address] [place], [address] Monocytes/100 WBC (Bld) 7.3 % Normal 0-10 [facility] Comment on above: Performed By: #### L 501.13319, L506.1000, L501.9520, L509.3000, L801.2600, L100.0100, L503.0105, L3300.1500, L506.0400, L500.4050, L3300.1750 #### [facility] [address] [place], [address] Neutrophils/100 WBC (Bld) 59.7 % Normal 47-70 [facility] Comment on above: Performed By: #### L 501.20955, L506.1000, L501.9520, L509.3000, L801.2600, L100.0100, L503.0105, L3300.1500, L506.0400, L500.4050, L3300.1750 #### [facility] [address] [place], [address] NRBC # 0.00 10 3/uL Normal 0-5 [facility] Comment on above: Performed By: #### L 501.68355, L506.1000, L501.9520, L509.3000, L801.2600, L100.0100, L503.0105, L3300.1500, L506.0400, L500.4050, L3300.1750 #### [facility] [address] [place], [address] Nucleated RBC (Bld) [#/Vol] 0 10*3/uL Normal 0-5 [facility] Comment on above: Performed By: #### L 501.58032, L506.1000, L501.9520, L509.3000, L801.2600, L100.0100, L503.0105, L3300.1500, L506.0400, L500.4050, L3300.1750 #### [facility] [address] [place], [address] Platelet mean volume (Bld) [Entitic vol] 10.7 fL Normal 6.2-12.0 [facility] Comment on above: Performed By: #### L 501.78736, L506.1000, L501.9520, L509.3000, L801.2600, L100.0100, L503.0105, L3300.1500, L506.0400, L500.4050, L3300.1750 #### [facility] [address] [place], [address] Platelets (Bld) [#/Vol] 264 10*3/uL Normal 150-450 [facility] Comment on above: Performed By: #### L 501.10125, L506.1000, L501.9520, L509.3000, L801.2600, L100.0100, L503.0105, L3300.1500, L506.0400, L500.4050, L3300.1750 #### [facility] [address] [place], [address] RBC (Bld) [#/Vol] 4.62 10*6/uL Normal 4.2-5.4 [facility] Comment on above: Performed By: #### L 501.18776, L506.1000, L501.9520, L509.3000, L801.2600, L100.0100, L503.0105, L3300.1500, L506.0400, L500.4050, L3300.1750 #### [facility] [address] [place], [address] RDW SD 46.2 fl High 35.1-43.9 [facility] Comment on above: Performed By: #### L 501.31947, L506.1000, L501.9520, L509.3000, L801.2600, L100.0100, L503.0105, L3300.1500, L506.0400, L500.4050, L3300.1750 #### [facility] [address] [place], [address] WBC (Bld) [#/Vol] 7.2 10*3/uL Normal 4.4-11.0 [facility] Comment on above: Performed By: #### L 501.24414, L506.1000, L501.9520, L509.3000, L801.2600, L100.0100, L503.0105, L3300.1500, L506.0400, L500.4050, L3300.1750 #### [facility] [address] [facility] [place], [address] Calculated very low density lipoprotein (VLDL) cholesterol measurementOrdered By: HEALTH ASSESSMENT on 12-13-2024 Calculated very low density lipoprotein (VLDL) cholesterol measurement 33 mg/dL 5-40 [facility] Carbon dioxide, total [Moles /volume] in Central venous bloodOrdered By: HEALTH ASSESSMENT on 12-13-2024 CO2 [Moles/Vol] 23.3 mmol/L 21.0-32.0 [facility] Chloride assayOrdered By: HE ALTH ASSESSMENT on 12-13-2024 Chloride [Moles/Vol] 104 mmol/L 98-108 [facility] Employee Profileon Cholesterol in LDL [Mass/Vol] 112 mg/dL Normal 0-130 [facility] Comment on above: Performed By: #### L 501.37012, L506.1000, L501.9520, L509.3000, L801.2600, L100.0100, L503.0105, L3300.1500, L506.0400, L500.4050, L3300.1750 #### [facility] [address] [place], [address] Erythrocyte distribution wid th ratioOrdered By: HEALTH ASSESSMENT on 12-13-2024 Erythrocyte distribution width (RBC) [Ratio] 14.6 % 11.6-14.6 [facility] Erythrocyte distribution wid th standard deviationOrdered By: HEALTH ASSESSMENT on 12-13-2024 Erythrocyte distribution width (RBC) [Ratio] 46.2 fl High 35.1-43.9 [facility] Glomerular filtration rate ( GFR) estimation/1.73 sq m using serum, plasma, or whole bOrdered By: HEALTH ASSESSMENT on 12-13-2024 GFR/1.73 sq M.predicted among non-blacks MDRD (S/P/Bld) [Vol rate/Area] 102 mL/min/{1.73_m2} >60 [facility] Comment on above: mL/min/1.73m2 CKD-EP I Creatinine Equation (2020) Hematocrit Auto (Bld) [Volum e fraction]Ordered By: HEALTH ASSESSMENT on 12-13-2024 Hematocrit (Bld) [Volume fraction] 40.2 % 37-47 [facility] Hemoglobin measurementOrdere d By: HEALTH ASSESSMENT on 12-13-2024 Hemoglobin (Bld) [Mass/Vol] 13.4 g/dL 12.0-15.0 [facility] Ketones Test strip Ql (U)Ord ered By: HEALTH ASSESSMENT on 12-13-2024 Ketones Ql (U) Negative Negative [facility] - Chemistry and C hemistry - challengeOrdered By: HEALTH ASSESSMENT on 12-13-2024 AST [Catalytic activity/Vol] 16 U/L <32 [facility] Lactate dehydrogenase (LDH) measurementOrdered By: HEALTH ASSESSMENT on 12-13-2024 LDH [Catalytic activity/Vol] 153 U/L 84-246 [facility] MCV (mean corpuscular volume ) determinationOrdered By: HEALTH ASSESSMENT on 12-13-2024 MCV (RBC) [Entitic vol] 87.0 fL 81-99 [facility] Mean corpuscular hemoglobin (MCH) determinationOrdered By: HEALTH ASSESSMENT on 12-13-2024 MCH (RBC) [Entitic mass] 29.0 pg 27.0-32.0 [facility] Mean corpuscular hemoglobin concentration (MCHC) determinationOrdered By: HEALTH ASSESSMENT on 12-13-2024 MCHC (RBC) [Mass/Vol] 33.3 g/dL 32-36 [facility] Mean platelet volume determi nationOrdered By: HEALTH ASSESSMENT on 12-13-2024 Platelet mean volume (Bld) [Entitic vol] 10.7 fL 6.2-12.0 [facility] Neutrophil percentageOrdered By: HEALTH ASSESSMENT on 12-13-2024 Neutrophils/100 WBC (Bld) 59.7 % 47-70 [facility] Nitrite Test strip Ql (U)Ord ered By: HEALTH ASSESSMENT on 12-13-2024 Nitrite Ql (U) Negative Negative [facility] Nucleated red blood cell per centageOrdered By: HEALTH ASSESSMENT on 12-13-2024 Nucleated RBC/100 WBC (Bld) [Ratio] 0 % 0-5 [facility] Platelet countOrdered By: HE ALTH ASSESSMENT on 12-13-2024 Platelets (Bld) [#/Vol] 264 10*3/uL 150-450 [facility] Potassium measurement (mass/ volume)Ordered By: HEALTH ASSESSMENT on 12-13-2024 Potassium (Unsp spec) [Mass/Vol] 3.7 mmol/L 3.3-5.1 [facility] Protein Test strip Ql (U)Ord ered By: HEALTH ASSESSMENT on 12-13-2024 Protein Ql (U) 30 mg/dl High Negative [facility] RBC Auto (Bld) [#/Vol]Ordere d By: HEALTH ASSESSMENT on 12-13-2024 RBC (Bld) [#/Vol] 4.62 10*6/uL 4.2-5.4 [facility] Screening total cholesterol/ high density lipoprotein (HDL) cholesterol ratioOrdered By: HEALTH ASSESSMENT on 12-13-2024 Cholesterol.total/Choleste rol in HDL [Mass ratio] 4.03 {ratio} [facility] Serum creatinine measurement (mass/volume)Ordered By: HEALTH ASSESSMENT on 12-13-2024 Creatinine [Mass/Vol] 0.74 mg/dL 0.70-1.20 [facility] Serum globulin measurementOr dered By: HEALTH ASSESSMENT on 12-13-2024 Globulin (S) [Mass/Vol] 3.0 g/dL 2.2-4.2 [facility] Serum glucose measurement (m ass/volume)Ordered By: HEALTH ASSESSMENT on 12-13-2024 Glucose [Mass/Vol] 101 mg/dL High 70-99 [facility] Serum or plasma alanine stark otransferase (ALT) measurementOrdered By: HEALTH ASSESSMENT on 12-13-2024 ALT [Catalytic activity/Vol] 9 U/L <35 [facility] Serum or plasma albumin aashish urement (mass/volume)Ordered By: HEALTH ASSESSMENT on 12-13-2024 Albumin [Mass/Vol] 4.1 g/dL 3.5-5.0 [facility] Serum or plasma albumin/glob ulin mass ratioOrdered By: HEALTH ASSESSMENT on 12-13-2024 Albumin/Globulin [Mass ratio] 1.4 {ratio} 0.9-2.4 [facility] Serum or plasma alkaline irasema sphatase measurementOrdered By: HEALTH ASSESSMENT on 12-13-2024 ALP [Catalytic activity/Vol] 55 U/L 35-104 [facility] Serum or plasma calcium aashish urement (mass/volume)Ordered By: HEALTH ASSESSMENT on 12-13-2024 Calcium [Mass/Vol] 9.0 mg/dL 7.6-11.0 [facility] Serum or plasma cholesterol in HDL measurement (mass/volume)Ordered By: HEALTH ASSESSMENT on 12-13-2024 Cholesterol in HDL [Mass/Vol] 48 mg/dL >40 [facility] Comment on above: National Cholesterol Education Program (NCEP) guidelines:<40 mg/dL: Low HDL-cholesterol (major risk factor for CHD)>= 60 mg/dL: High HDL-cholesterol (negative risk factor for CHD)HDL-cholesterol is affected by a number of factors, e.g. smoking, exercise, hormones, sex and age. Serum or plasma cholesterol in LDL measurement (mass/volume)Ordered By: HEALTH ASSESSMENT on 12-13-2024 Cholesterol in LDL [Mass/Vol] 112 mg/dL 0-130 [facility] Serum or plasma cholesterol measurement (mass/volume)Ordered By: HEALTH ASSESSMENT on 12-13-2024 Cholesterol [Mass/Vol] 193 mg/dL <201 [facility] Comment on above: Cholesterol level, D esirable <200 mg/dLBorderline high cholesterol 200-239 mg/dLHigh cholesterol >=240 mg/dLRecommendations of the NCEP Adult Treatment Panel for the following risk-cutoff thresholds for the [place] population. Serum or plasma urea nitroge n measurement (mass/volume)Ordered By: HEALTH ASSESSMENT on 12-13-2024 Urea nitrogen [Mass/Vol] 13 mg/dL 4-19 [facility] Serum or plasma uric acid me asurement (mass/volume)Ordered By: HEALTH ASSESSMENT on 12-13-2024 Urate [Mass/Vol] 5.5 mg/dL 2.6-6.0 [facility] Comment on above: The drugs N-Acetylcy steine and Metamizole may falsely depress this assay. Sodium levelOrdered By: [facility] ASSESSMENT on 12-13-2024 Sodium [Moles/Vol] 138 mmol/L 133-145 [facility] Total proteinOrdered By: A [place] ASSESSMENT on 12-13-2024 Protein [Mass/Vol] 7.1 g/dL 5.9-8.4 [facility] Triglycerides measurementOrd ered By: HEALTH ASSESSMENT on 12-13-2024 Triglyceride [Mass/Vol] 165 mg/dL <199 [facility] Comment on above: The drugs N-Acetylcy steine and Metamizole may falsely depress this assay. Normal range: <150 mg/dLBorderline High: 150-199 mg/dLHigh: 200-499 mg/dLVery High: >500 mg/dL Urinalysis, Employeeon 12-13 BILIRUBIN URINE Negative Normal Negative [facility] Comment on above: Order Comment: Urine , Random Performed By: #### L 501.44197, L506.1000, L501.9520, L509.3000, L801.2600, L100.0100, L503.0105, L3300.1500, L506.0400, L500.4050, L3300.1750 #### [facility] [address] [place], [place], [address] Clarity (U) Sl. Cloudy Normal Clear [facility] Comment on above: Order Comment: Urine , Random Performed By: #### L 501.09973, L506.1000, L501.9520, L509.3000, L801.2600, L100.0100, L503.0105, L3300.1500, L506.0400, L500.4050, L3300.1750 #### [facility] [address] [place], [place], [id number] Color (U) Yellow Normal Yellow [facility] Comment on above: Order Comment: Urine , Random Performed By: #### L 501.66642, L506.1000, L501.9520, L509.3000, L801.2600, L100.0100, L503.0105, L3300.1500, L506.0400, L500.4050, L3300.1750 #### [facility] [address] [place], [address] GLUCOSE, UR Normal Normal Normal [facility] Comment on above: Order Comment: Urine , Random Performed By: #### L 501.13913, L506.1000, L501.9520, L509.3000, L801.2600, L100.0100, L503.0105, L3300.1500, L506.0400, L500.4050, L3300.1750 #### [facility] [address] [place], [place], [id number] KETONE UR Negative Normal Negative [facility] Comment on above: Order Comment: Urine , Random Performed By: #### L 501.61306, L506.1000, L501.9520, L509.3000, L801.2600, L100.0100, L503.0105, L3300.1500, L506.0400, L500.4050, L3300.1750 #### [facility] [address] [place], [address] LEUK ESTERASE Negative Normal Negative [facility] Comment on above: Order Comment: Urine , Random Performed By: #### L 501.23788, L506.1000, L501.9520, L509.3000, L801.2600, L100.0100, L503.0105, L3300.1500, L506.0400, L500.4050, L3300.1750 #### [facility] [address] [place], [place], [id number] Nitrite Ql (U) Negative Normal Negative [facility] Comment on above: Order Comment: Urine , Random Performed By: #### L 501.03447, L506.1000, L501.9520, L509.3000, L801.2600, L100.0100, L503.0105, L3300.1500, L506.0400, L500.4050, L3300.1750 #### [facility] [address] [facility] [place], [address] OCCULT BLOOD-UR Negative Normal Negative [facility] Comment on above: Order Comment: Urine , Random Performed By: #### L 501.79962, L506.1000, L501.9520, L509.3000, L801.2600, L100.0100, L503.0105, L3300.1500, L506.0400, L500.4050, L3300.1750 #### [facility] [address] [place], [place], [id number] pH UR 6.0 Normal 5.0 - 8.0 [facility] Comment on above: Order Comment: Urine , Random Performed By: #### L 501.49460, L506.1000, L501.9520, L509.3000, L801.2600, L100.0100, L503.0105, L3300.1500, L506.0400, L500.4050, L3300.1750 #### [facility] [address] [place], [address] PROT DIPSTX 30 mg/dl Abnormal Negative [facility] Comment on above: Order Comment: Urine , Random Performed By: #### L 501.52830, L506.1000, L501.9520, L509.3000, L801.2600, L100.0100, L503.0105, L3300.1500, L506.0400, L500.4050, L3300.1750 #### [facility] [address] [place], [place], [id number] SP.GR. DIPSTX 1.025 Normal 1.002-1.030 [facility] Comment on above: Order Comment: Urine , Random Performed By: #### L 501.93106, L506.1000, L501.9520, L509.3000, L801.2600, L100.0100, L503.0105, L3300.1500, L506.0400, L500.4050, L3300.1750 #### [facility] [address] [place], [place], [id number] UROBILI Normal Normal Normal [facility] Comment on above: Order Comment: Urine , Random Performed By: #### L 501.04116, L506.1000, L501.9520, L509.3000, L801.2600, L100.0100, L503.0105, L3300.1500, L506.0400, L500.4050, L3300.1750 #### [facility] [address] [facility] [place], [place], [id number] Urine clarityOrdered By: A [place] ASSESSMENT on 12-13-2024 Clarity (U) Sl. Cloudy Clear [facility] Urine color determinationOrd ered By: HEALTH ASSESSMENT on 12-13-2024 Color (U) Yellow Yellow [facility] Urine glucose detectionOrder ed By: HEALTH ASSESSMENT on 12-13-2024 Glucose Ql (U) Normal mg/dl Normal [facility] Urine leukocyte esterase det ection by dipstickOrdered By: HEALTH ASSESSMENT on 12-13-2024 Leukocyte esterase Test strip Ql (U) Negative Negative [facility] Urine pHOrdered By: HEALTH A SSESSMENT on 12-13-2024 pH (U) 6.0 [pH] 5.0 - 8.0 [facility] Urine specific gravity measu rementOrdered By: HEALTH ASSESSMENT on 12-13-2024 Specific gravity (U) [Rel density] 1.025 1.002-1.030 [facility] Urine urobilinogen measureme ntOrdered By: HEALTH ASSESSMENT on 12-13-2024 Urobilinogen Ql (U) Normal mg/dl Normal [facility] White blood cell (WBC) count Ordered By: HEALTH ASSESSMENT on 12-13-2024 WBC (Bld) [#/Vol] 7.2 10*3/uL 4.4-11.0 [facility] PROGESTERONE 4317on 09-26-19 25 PROGESTERONE 1.9 ng/mL Normal . [facility] Comment on above: Order Comment: N Result Comment: Foll icular phase 0.1 - 0.9 Luteal phase 1.8 - 23.9 Ovulation phase 0.1 - 12.0 First trimester 11.0 - 44.3 Second trimester 25.4 - 83.3 Third trimester 58.7 - 214.0 Postmenopausal 0.0 - 0.1 Performed at: [facility] [id number] [employer] Sign Servicer: Kevin Williamson PhD, Phone: [phone] Performed By: #### L 501.11279, L506.1000, L501.9520, L509.3000, L801.2600, L100.0100, L503.0105, L3300.1500, L506.0400, L500.4050, L3300.1750 #### [facility] [address] [place], [address] E2 post dose follitropin [Ma ss/Vol]Ordered By: Elyse Bullard on 09-24-2024 Estradiol (E2) Level 46.2 pg/mL [facility] Comment on above: FEMALES ADULT FEMALE : Premenopausal: 15-350 pg/mL(E2 levels vary widely through the menstrual cycle) Postmenopausal: <10 pg/mL RICHIE STAGES MEAN AGE REFERENCE RANGES Stage I(>14 days and prepubertal) 7.1 years Undetectable-20 pg/mLL Stage II 10.5 years Undetectable-24 pg/mL Stage III 11.6 years Undetectable-60 pg/mL Stage IV 12.3 years 15-85 pg/mL Stage V 14.5 years 15-350 pg/mL Puberty onset (transition from Richie stage I to Richie stage II) occurs for girls at a median age of 10.5 (/- 2) years. There is evidence that it may occur up to 1 year earlier in obese girls and in girls.Progression through Richie stages is variable. Richie stage V (adult) should be reached by age 18. Estradiolon 09-24-2024 ESTRADIOL 46.2 pg/mL Normal [facility] Comment on above: Result Comment: FEMA LES ADULT FEMALE: Premenopausal: 15-350 pg/mL(E2 levels vary widely through the menstrual cycle) Postmenopausal: <10 pg/mL RICHIE STAGES MEAN AGE REFERENCE RANGES Stage I(>14 days and prepubertal) 7.1 years Undetectable-20 pg/mLL Stage II 10.5 years Undetectable-24 pg/mL Stage III 11.6 years Undetectable-60 pg/mL Stage IV 12.3 years 15-85 pg/mL Stage V 14.5 years 15-350 pg/mL Puberty onset (transition from Richie stage I to Richie stage II) occurs for girls at a median age of 10.5 (/- 2) years. There is evidence that it may occur up to 1 year earlier in obese girls and in girls. Progression through Richie stages is variable. Richie stage V (adult) should be reached by age 18. Performed By: #### L 501.30835, L506.1000, L501.9520, L509.3000, L801.2600, L100.0100, L503.0105, L3300.1500, L506.0400, L500.4050, L3300.1750 #### [facility] [address] [place], [address] L509.3001on 09-24-2024 Testosterone [Mass/Vol] 344.00 ng/dL High 9-55 [facility] Comment on above: Performed By: #### L 501.46218, L506.1000, L501.9520, L509.3000, L801.2600, L100.0100, L503.0105, L3300.1500, L506.0400, L500.4050, L3300.1750 #### [facility] [address] [place], [place], [id number] Laboratory - Chemistry and C hemistry - challengeOrdered By: Elyse Bullard on 09-24-2024 Testosterone [Mass/Vol] 344.00 ng/dL High 9-55 [facility] PAP IG HPV APTIMA 16/18,45on 09-24-2024 ADEQ Comment Normal . [facility] Comment on above: Order Comment: Speci men Comment: [id number] Comment: Source.............CervixSpecimen Comment: No. of containers..01 ThinPrep Vial Result Comment: Spec imen processed and examined but unsatisfactory for evaluation of epithelial abnormality because of insufficient cellularity. Performed By: #### L 501.81507, L506.1000, L501.9520, L509.3000, L801.2600, L100.0100, L503.0105, L3300.1500, L506.0400, L500.4050, L3300.1750 #### [facility] [address] [place], [place], [id number] COMM . Normal . [facility] Comment on above: Order Comment: Speci men Comment: [id number] Comment: Source.............CervixSpecimen Comment: No. of containers..01 ThinPrep Vial Performed By: #### L 501.44261, L506.1000, L501.9520, L509.3000, L801.2600, L100.0100, L503.0105, L3300.1500, L506.0400, L500.4050, L3300.1750 #### [facility] [address] [place], [place], [id number] COMMENT TNP Normal . [facility] Comment on above: Order Comment: Speci men Comment: [id number] Comment: Source.............CervixSpecimen Comment: No. of containers..01 ThinPrep Vial Result Comment: The [employer] Manager was unable to read this specimen. Therefore a manual review was performed. Performed By: #### L 501.65065, L506.1000, L501.9520, L509.3000, L801.2600, L100.0100, L503.0105, L3300.1500, L506.0400, L500.4050, L3300.1750 #### [facility] [address] [place], [address] DIAG Comment Normal . [facility] Comment on above: Order Comment: Speci men Comment: [id number] Comment: Source.............CervixSpecimen Comment: No. of containers..01 ThinPrep Vial Result Comment: UNSA TISFACTORY FOR EVALUATION. Performed By: #### L 501.65526, L506.1000, L501.9520, L509.3000, L801.2600, L100.0100, L503.0105, L3300.1500, L506.0400, L500.4050, L3300.1750 #### [facility] [address] [place], [place], [id number] HPV APTIMA, HR Negative Normal Negative [facility] Comment on above: Order Comment: Speci men Comment: [id number] Comment: Source.............CervixSpecimen Comment: No. of containers..01 ThinPrep Vial Result Comment: This nucleic acid amplification test detects fourteen high- risk HPV types (16,18,31,33,35,39,45,51,52,56,58,59,66,68) without differentiation. Performed By: #### L 501.89205, L506.1000, L501.9520, L509.3000, L801.2600, L100.0100, L503.0105, L3300.1500, L506.0400, L500.4050, L3300.1750 #### [facility] [address] [place], [place], [id number] HPV Heather Rfx Comment Normal . [facility] Comment on above: Order Comment: Speci men Comment: [id number] Comment: Source.............CervixSpecimen Comment: No. of containers..01 ThinPrep Vial Result Comment: Crit ju not met, HPV Genotype not performed. Performed at: - [address] [id number] [employer] Servicer: Genny Rodrigez MD, Phone: [phone] Performed at: = - [facility] [id number] [employer] Servicer: Genny Rodrigez MD, Phone: [phone] Performed By: #### L 501.57651, L506.1000, L501.9520, L509.3000, L801.2600, L100.0100, L503.0105, L3300.1500, L506.0400, L500.4050, L3300.1750 #### [facility] [address] [place], [id number] PAPSMR Comment Normal . [facility] Comment on above: Order Comment: Speci men Comment: [id number] Comment: Source.............CervixSpecimen Comment: No. of containers..01 ThinPrep Vial Result Comment: The Pap smear is a screening test designed to aid in the detection of premalignant and malignant conditions of the uterine cervix. It is not a diagnostic procedure and should not be used as the sole means of detecting cervical cancer. Both false-positive and false-negative reports do occur. Performed By: #### L 501.22741, L506.1000, L501.9520, L509.3000, L801.2600, L100.0100, L503.0105, L3300.1500, L506.0400, L500.4050, L3300.1750 #### [facility] [address] [place], [place], [id number] PERFORM Comment Normal . [facility] Comment on above: Order Comment: Speci men Comment: [id number] Comment: Source.............CervixSpecimen Comment: No. of containers..01 ThinPrep Vial Result Comment: Shantelle Love, Glue Specialty Supervisor (ASCP) Performed By: #### L 501.20578, L506.1000, L501.9520, L509.3000, L801.2600, L100.0100, L503.0105, L3300.1500, L506.0400, L500.4050, L3300.1750 #### [facility] [address] [place], [address] QC REV Comment Normal . [facility] Comment on above: Order Comment: Speci men Comment: [id number] Comment: Source.............CervixSpecimen Comment: No. of containers..01 ThinPrep Vial Result Comment: Ramiro Anderosn, Supervisory Glue Specialty Supervisor (ASCP) Performed By: #### L 501.99163, L506.1000, L501.9520, L509.3000, L801.2600, L100.0100, L503.0105, L3300.1500, L506.0400, L500.4050, L3300.1750 #### [facility] [address] [place], [address] RECOMM Comment Normal . [facility] Comment on above: Order Comment: Speci men Comment: [id number] Comment: Source.............CervixSpecimen Comment: No. of containers..01 ThinPrep Vial Result Comment: Sugg est follow up as clinically appropriate. Performed By: #### L 501.24760, L506.1000, L501.9520, L509.3000, L801.2600, L100.0100, L503.0105, L3300.1500, L506.0400, L500.4050, L3300.1750 #### [facility] [address] [place], [address] Quantitative serum progester one measurement by electrochemiluminescence immunoassay (Ordered By: Elyse Bullard on 09-24-2024 Progesterone Level 1.9 ng/mL . [facility] Comment on above: Follicular phase 0.1 - 0.9 Luteal phase 1.8 - 23.9 Ovulation phase 0.1 - 12.0 First trimester 11.0 - 44.3 Second trimester 25.4 - 83.3 Third trimester 58.7 - 214.0 Postmenopausal 0.0 - 0.1Performed at: - [place] [id number] Director: Kevin Williamson PhD, Phone: [phone] Serum or plasma estradiol me asurement after follitropin dose (mass/volume)Ordered By: Elyse Bullard on 09-24-2024 E2 post dose follitropin [Mass/Vol] 46.2 pg/mL [facility] Comment on above: FEMALES ADULT FEMALE : Premenopausal: 15-350 pg/mL(E2 levels vary widely through the menstrual cycle) Postmenopausal: <10 pg/mL RICHIE STAGES MEAN AGE REFERENCE RANGES Stage I(>14 days and prepubertal) 7.1 years Undetectable-20 pg/mLL Stage II 10.5 years Undetectable-24 pg/mL Stage III 11.6 years Undetectable-60 pg/mL Stage IV 12.3 years 15-85 pg/mL Stage V 14.5 years 15-350 pg/mL Puberty onset (transition from Richie stage I to Richie stage II) occurs for girls at a median age of 10.5 (/- 2) years. There is evidence that it may occur up to 1 year earlier in obese girls and in girls.Progression through Richie stages is variable. Richie stage V (adult) should be reached by age 18. Cervical or vaginal specimen microscopic examination by liquid based cytology (reportOrdered By: Abbey Chavez on 09-20-2024 Cytology report Cyto stain.thin prep Doc (Cvx/Vag) Comment . [facility] Comment on above: Criteria not met, HP V Genotype not performed.Performed at: - [address] [id number] Director: Genny Rodrigez MD, Phone: [phone] at: =[facility] [id number] Director: Genny Rodrigez MD, Phone: [phone] Cervical or vagninal specime n microscopic examination by cytology stain (reported asOrdered By: Abbey Chavez on 09-20-2024 Cytology report Cyto stain Doc (Cvx/Vag) Comment . [facility] Comment on above: The Pap smear is a s creening test designed to aid in thedetection of premalignant and malignant conditions of theuterine cervix. It is not a diagnostic procedure andshould not be used as the sole means of detecting cervicalcancer. Both false-positive and false-negative reports dooccur. Bundle Tier Cyto stain Nom (C vx/Vag) [ID]Ordered By: Abbey Chavez on 09-20-2024 Pap Smear Performed By Comment . [facility] Comment on above: Kamaljit galaviz, Glue Specialty Supervisor (ASCP) Cytology report Cyto stain D oc (Cvx/Vag)Ordered By: Abbey Chavez on 09-20-2024 Thin Prep Pap Smear Comment . [facility] Comment on above: The Pap smear is a s creening test designed to aid in thedetection of premalignant and malignant conditions of theuterine cervix. It is not a diagnostic procedure andshould not be used as the sole means of detecting cervicalcancer. Both false-positive and false-negative reports dooccur. Cytology report Cyto stain.t hin prep Doc (Cvx/Vag)Ordered By: Abbey Chavez on 09-20-2024 HPV Genotype Special Info Comment . [facility] Comment on above: Criteria not met, HP V Genotype not performed.Performed at: WB - [facility] [address] [id number] Director: Genny Rodrigez MD, Phone: [phone] at: =G - [facility] [address] [id number] Director: Genny Rodrigez MD, Phone: [phone] Detection in cervical specim en of any of human papilloma virus (HPV) 16, 18, 31, 33,Ordered By: Abbey Chavez on 09-20-2024 HPV 16+18+31+33+35+39+45+51+52 +56+58+59+66+68 DNA Probe+sig amp Ql (Cvx) Negative Negative [facility] Comment on above: This nucleic acid am plification test detects fourteen high-risk HPV types (16,18,31,33,35,39,45,51,52,56,58,59,66,68)without differentiation. HPV 16+18+31+33+35+39+45+51+ 52+56+58+59+66+68 DNA Probe+sig amp Ql (Cvx)Ordered By: Abbey Chavez on 09-20-2024 Human Papillomavirus High Risk Negative Negative [facility] Comment on above: This nucleic acid am plification test detects fourteen high-risk HPV types (16,18,31,33,35,39,45,51,52,56,58,59,66,68)without differentiation. Image-guided ThinPrep PapOrd ered By: Abbey Chavez on 09-20-2024 Pap Smear Note TNP [facility] Comment on above: Test not performedTh e Thin Prep(R) Manufacturing Plant Manager was unable to read this specimen.Therefore a manual review was performed. Laboratory - CytologyOrdered By: Abbey Chavez on 09-20-2024 Bundle Tier Cyto stain Nom (Cvx/Vag) [ID] Comment . [facility] Comment on above: Kamaljit galaviz, Glue Specialty Supervisor (ASCP) Recommended follow-up Cyto stain Nom (Cvx/Vag) Comment . [facility] Comment on above: Suggest follow up as clinically appropriate. Laboratory - Miscellaneous t estsOrdered By: Abbey Chavez on 09-20-2024 Service comment (Unsp spec) [Interp] . . [facility] No Panel InformationOrdered By: Abbey Chavez on 09-20-2024 Pap Smear Specimen Adequacy Comment . [facility] Comment on above: Specimen processed a nd examined but unsatisfactory for evaluation ofepithelial abnormality because of insufficient cellularity. Sexologist Office Visit Reporton 09-20-2024 Sexologist Office Visit Report [facility] [address], [address] [place] [address] OFFICE VISIT Date of Service: 09/20/24 MR#: [id number] Acct: [id number] Name: KARYN AMBROSIO Rep #: [id number] : 1980 Provider: Dr. 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 Is patient in pain?: No Allergies Penicillins Allergy (Verified 09/20/24 13:07) Rash Medications ???Medication ???Instructions ???Recorded ???Confirmed ???Type multivitamin 1 tab PO DAILY 04/25/20 09/20/24 H istory omega-3 fatty acids-fish oil 360 1 cap PO DAILY 02/06/24 09/20/24 H istory mg-1,200 mg capsule (Fish Oil) B-complex with vitamin C 1 cap PO QDAY 09/20/24 09/20/24 Hi story cholecalciferol (vitamin D3) 250 250 mcg PO QWEEK 09/20/24 09/20/24 History mcg (10,000 unit) capsule estrogen-testosterone pellet 1 pellet PO DAILY 09/20/24 Histor y progesterone micronized 100 mg 100 mg PO QAM 09/20/24 09/20/24 Hi story capsule Is last menstrual period known: Yes Last Menstrual Period: 08/30/24 Post menopausal: No Patient : No : No [facility] Medical History Alcohol use Restless legs Migraine headache Non-smoker Anxiety Incomplete uterovaginal prolapse Surgical History vein ablation Hx of LASIK Family History Mother Heart disease Grandmother Breast cancer Father Hypercholesterolemia Social History (Updated 09/20/24 @ 13:10 by Cyndie Vu) household members: spouse number of children: 2 current occupational status: employed current occupation: [employer] Smoking Status: Never smoker alcohol intake: never substance use type: does not use caffeine: Yes what type of physical activity do you participate in: walking seatbelt use: always do you feel safe at home: Yes additional social history: Spouse Jad History 2 Elective abortions Hx Para 2 Spontaneous abortions Hx # Term Pregnancies Ectopic pregnancies Hx # Pregnancies Multiple births # of living children Past Pregnancies Del. Date Name GA/Weeks Outcome Route Bth Weight Gen Labor Lgth Anesthesia Del Locatn Provider FOB Unknown 2009 [facility] Unknown 2013 [facility] HPI Encounter for routine gynecological examination Details: KARYN AMBROSIO is a 44 year old who presents for annual exam.patient having low libido and weight gain, perimenopausal symptoms, on bioidentical hormone replacement. discussed wellbutrin if desired. Last PAP: 04/25/2020 - normal History of abnormal PAP: Last mammogram: 07/21/2024 - normal History of abnormal mammogram: Colon cancer screenin Other preventative health care screenings: PCP [facility] Female Reproductive History Last Menstrual Period: 08/30/24 Cycle Length: 21-35 Bleeding Duration: 5 Questions: metorrhagia: No, sexually active: Yes, dyspareunia: No and PCB: No Menopausal Symptoms: No hot flashes, No night sweats, No weight change, No mood changes, No difficulty concentrating, No sleep problems and No change in libido ROS Const Constitutional: Reports as per HPI; Denies fatigue, increased appetite, poor appetite, night sweats, weight gain or weight loss Cardio Card: Denies chest pain Resp Resp: Denies cough or dyspnea GI GI: Reports as per HPI; Denies abdominal pain, bloating, constipation, nausea or vomiting : Reports as per HPI, prolapse symptoms and other; Denies difficulty voiding, dysuria, hematuria, hot flashes, nipple discharge, pelvic pain, urinary frequency, urinary incontinence, urinary urgency, vaginal discharge, vaginal dryness, vaginal odor or vaginal pruritus Skin Skin/Breast: Denies changing lesions, breast mass, breast pain, breast skin changes or nipple discharge Psych Psych: Denies anxiety, change in libido, depression or difficulty concentrating Exam Const General: cooperative, healthy appearing, comfortable, no acute distress, well developed and well groomed HENMT Head: normal to inspection and normocephalic Ears: hearing grossly normal bilaterally and external ears normal Nose: external nose normal Face and sinus: normal facial exam Neck Neck: normal visual inspection, full ROM and no lymphadenopathy Thyroid: thyroid normal Chest Chest palpation inspection: normal inspection of the chest Breast inspection: normal inspection of the breasts (more content not included)... Normal [facility] Recommended follow-up Cyto s tain Nom (Cvx/Vag)Ordered By: Abbey Chavez on 09-20-2024 Pap Smear Recommendation Comment . [facility] Comment on above: Suggest follow up as clinically appropriate. Service comment (Unsp spec) [Interp]Ordered By: Abbey Chavez on 09-20-2024 Pap Smear Comment (3) . . [facility] DHEA Sulfateon 08-12-2024 DHEA SULFATE 94.6 ug/dL Normal 41.2-243.7 [facility] Comment on above: Order Comment: N Result Comment: Perf ormed at: CB - [facility] [address] [id number] Neon Sign Servicer: Kevin Williamson PhD, Phone: [phone] Performed By: #### L 501.32466, L506.1000, L501.9520, L509.3000, L801.2600, L100.0100, L503.0105, L3300.1500, L506.0400, L500.4050, L3300.1750 #### [facility] [address] [place], [address] PROGESTERONE 4317on 08-12-19 25 PROGESTERONE 0.2 ng/mL Normal . [facility] Comment on above: Order Comment: N Result Comment: Foll icular phase 0.1 - 0.9 Luteal phase 1.8 - 23.9 Ovulation phase 0.1 - 12.0 First trimester 11.0 - 44.3 Second trimester 25.4 - 83.3 Third trimester 58.7 - 214.0 Postmenopausal 0.0 - 0.1 Performed at: [facility] [id number] Neon Sign Servicer: Kevin Williamson PhD, Phone: [phone] Performed By: #### L 501.28196, L506.1000, L501.9520, L509.3000, L801.2600, L100.0100, L503.0105, L3300.1500, L506.0400, L500.4050, L3300.1750 #### [facility] [address] [place], [address] [id number] DOrdered By: Michoacano Conley on 08-11-2024 Vitamin D 25-Hydroxy 22.4 ng/mL [facility] Comment on above: Vitamin D 25(OH) Sta tus Range Deficiency <20 ng/mL (50nmol/L) Insufficiency 20 - 30 ng/mL (50 - 75 nmol/L) Sufficiency 30 - 100 ng/mL (75 - 250 nmol/L) Toxicity >100 ng/mL (>250 nmol/L) Absolute neutrophil countOrd ered By: Terell Conley on 08-11-2024 Neutrophils (Bld) [#/Vol] 3.4 10*3/uL 2.0-7.7 [facility] Albumin to globulin ratioOrd ered By: Terell Conley on 08-11-2024 Albumin/Globulin [Mass ratio] 0.9 {ratio} 0.9-2.4 [facility] Basophil percentageOrdered B y: Terell Conley on 08-11-2024 Basophils/100 WBC (Bld) 1.3 % High 0-1 [facility] Bilirubin, totalOrdered By: Terell Conley on 08-11-2024 Bilirubin [Mass/Vol] 0.30 mg/dL 0.20-1.00 [facility] Comment on above: For patients on eltr ombopag therapy, use of Dimension Byers TBIL is not recommended. Blood urea nitrogen (BUN)/cr eatinine ratioOrdered By: Terell Conley on 08-11-2024 Urea nitrogen/Creatinine [Mass ratio] 20.5 mg/mg High 10-20 [facility] CBC W/Diff, Automatedon Absolute Lymph 2.08 X10 3/uL Normal 0.83-4.51 [facility] Comment on above: Performed By: #### L 501.16428, L506.1000, L501.9520, L509.3000, L801.2600, L100.0100, L503.0105, L3300.1500, L506.0400, L500.4050, L3300.1750 #### [facility] [address] [facility] [place], [place], [id number] Absolute Neut 3.4 X10 3/uL Normal 2.0-7.7 [facility] Comment on above: Performed By: #### L 501.83612, L506.1000, L501.9520, L509.3000, L801.2600, L100.0100, L503.0105, L3300.1500, L506.0400, L500.4050, L3300.1750 #### [facility] [address] [place], [place], [id number] Basophils/100 WBC (Bld) 1.3 % High 0-1 [facility] Comment on above: Performed By: #### L 501.64219, L506.1000, L501.9520, L509.3000, L801.2600, L100.0100, L503.0105, L3300.1500, L506.0400, L500.4050, L3300.1750 #### [facility] [address] [place], [address] Eosinophils/100 WBC (Bld) 2.0 % Normal 0-5 [facility] Comment on above: Performed By: #### L 501.29918, L506.1000, L501.9520, L509.3000, L801.2600, L100.0100, L503.0105, L3300.1500, L506.0400, L500.4050, L3300.1750 #### [facility] [address] [place], [address] Erythrocyte distribution width (RBC) [Ratio] 13.0 % Normal 11.6-14.6 [facility] Comment on above: Performed By: #### L 501.33512, L506.1000, L501.9520, L509.3000, L801.2600, L100.0100, L503.0105, L3300.1500, L506.0400, L500.4050, L3300.1750 #### [facility] [address] [place], [address] Hematocrit (Bld) [Volume fraction] 41.0 % Normal 37-47 [facility] Comment on above: Performed By: #### L 501.65265, L506.1000, L501.9520, L509.3000, L801.2600, L100.0100, L503.0105, L3300.1500, L506.0400, L500.4050, L3300.1750 #### [facility] [address] [place], [address] Hemoglobin (Bld) [Mass/Vol] 13.1 g/dL Normal 12.0-15.0 [facility] Comment on above: Performed By: #### L 501.73585, L506.1000, L501.9520, L509.3000, L801.2600, L100.0100, L503.0105, L3300.1500, L506.0400, L500.4050, L3300.1750 #### [facility] [address] [facility] [place], [address] IG% 0.500 Normal 0.0-0.9 [facility] Comment on above: Result Comment: IG% - Immature Granulocytes (promyelocytes, myelocytes and metamyelocytes) > 1% indicates that a LEFT SHIFT is Present. Performed By: #### L 501.61336, L506.1000, L501.9520, L509.3000, L801.2600, L100.0100, L503.0105, L3300.1500, L506.0400, L500.4050, L3300.1750 #### [facility] [address] [facility] [place], [address] Lymphocytes/100 WBC (Bld) 33.9 % Normal 19-41 [facility] Comment on above: Performed By: #### L 501.73271, L506.1000, L501.9520, L509.3000, L801.2600, L100.0100, L503.0105, L3300.1500, L506.0400, L500.4050, L3300.1750 #### [facility] [address] [place], [address] MCH (RBC) [Entitic mass] 29.0 pg Normal 27.0-32.0 [facility] Comment on above: Performed By: #### L 501.26294, L506.1000, L501.9520, L509.3000, L801.2600, L100.0100, L503.0105, L3300.1500, L506.0400, L500.4050, L3300.1750 #### [facility] [address] [facility] [place], [address] MCHC (RBC) [Mass/Vol] 32.0 g/dL Normal 32-36 [facility] Comment on above: Performed By: #### L 501.04821, L506.1000, L501.9520, L509.3000, L801.2600, L100.0100, L503.0105, L3300.1500, L506.0400, L500.4050, L3300.1750 #### [facility] [address] [facility] [place], [address] MCV (RBC) [Entitic vol] 90.7 fL Normal 81-99 [facility] Comment on above: Performed By: #### L 501.74573, L506.1000, L501.9520, L509.3000, L801.2600, L100.0100, L503.0105, L3300.1500, L506.0400, L500.4050, L3300.1750 #### [facility] [address] [facility] [place], [address] Monocytes/100 WBC (Bld) 6.8 % Normal 0-10 [facility] Comment on above: Performed By: #### L 501.23320, L506.1000, L501.9520, L509.3000, L801.2600, L100.0100, L503.0105, L3300.1500, L506.0400, L500.4050, L3300.1750 #### [facility] [address] [facility] [place], [address] Neutrophils/100 WBC (Bld) 55.5 % Normal 47-70 [facility] Comment on above: Performed By: #### L 501.01615, L506.1000, L501.9520, L509.3000, L801.2600, L100.0100, L503.0105, L3300.1500, L506.0400, L500.4050, L3300.1750 #### [facility] [address] [facility] [place], [address] Nucleated RBC (Bld) [#/Vol] 0 10*3/uL Normal 0-5 [facility] Comment on above: Performed By: #### L 501.37434, L506.1000, L501.9520, L509.3000, L801.2600, L100.0100, L503.0105, L3300.1500, L506.0400, L500.4050, L3300.1750 #### [facility] [address] [place], [address] Platelet mean volume (Bld) [Entitic vol] 10.1 fL Normal 6.2-12.0 [facility] Comment on above: Performed By: #### L 501.04357, L506.1000, L501.9520, L509.3000, L801.2600, L100.0100, L503.0105, L3300.1500, L506.0400, L500.4050, L3300.1750 #### [facility] [address] [place], [place], [id number] (844) Platelets (Bld) [#/Vol] 309 10*3/uL Normal 150-450 [facility] Comment on above: Performed By: #### L 501.08575, L506.1000, L501.9520, L509.3000, L801.2600, L100.0100, L503.0105, L3300.1500, L506.0400, L500.4050, L3300.1750 #### [facility] [address] [place], [address] RBC (Bld) [#/Vol] 4.52 10*6/uL Normal 4.2-5.4 [facility] Comment on above: Performed By: #### L 501.70262, L506.1000, L501.9520, L509.3000, L801.2600, L100.0100, L503.0105, L3300.1500, L506.0400, L500.4050, L3300.1750 #### [facility] [address] [place], [place], [address] RDW SD 42.9 fl Normal 35.1-43.9 [facility] Comment on above: Performed By: #### L 501.91561, L506.1000, L501.9520, L509.3000, L801.2600, L100.0100, L503.0105, L3300.1500, L506.0400, L500.4050, L3300.1750 #### [facility] [address] [place], [place], [address] WBC (Bld) [#/Vol] 6.1 10*3/uL Normal 4.4-11.0 [facility] Comment on above: Performed By: #### L 501.61222, L506.1000, L501.9520, L509.3000, L801.2600, L100.0100, L503.0105, L3300.1500, L506.0400, L500.4050, L3300.1750 #### [facility] [address] [place], [address] Carbon dioxide measurementOr dered By: Terell Conley on 08-11-2024 CO2 [Moles/Vol] 26.0 mmol/L 21.0-32.0 [facility] Chloride measurementOrdered By: Terell Conley on 08-11-2024 Chloride [Moles/Vol] 108 mmol/L High 98-107 [facility] Comprehensive Metabolic Prof ilon 08-11-2024 Albumin [Mass/Vol] 3.7 g/dL Normal 3.2-5.0 [facility] Comment on above: Performed By: #### L 501.49795, L506.1000, L501.9520, L509.3000, L801.2600, L100.0100, L503.0105, L3300.1500, L506.0400, L500.4050, L3300.1750 #### [facility] [address] [place], [address] Albumin/Globulin [Mass ratio] 0.9 {ratio} Normal 0.9-2.4 [facility] Comment on above: Performed By: #### L 501.16685, L506.1000, L501.9520, L509.3000, L801.2600, L100.0100, L503.0105, L3300.1500, L506.0400, L500.4050, L3300.1750 #### [facility] [address] [place], [place], [id number] ALK P 60 U/L Normal 45-117 [facility] Comment on above: Performed By: #### L 501.00428, L506.1000, L501.9520, L509.3000, L801.2600, L100.0100, L503.0105, L3300.1500, L506.0400, L500.4050, L3300.1750 #### [facility] [address] [place], [place], [id number] ALT [Catalytic activity/Vol] 22 U/L Normal 13-56 [facility] Comment on above: Performed By: #### L 501.01915, L506.1000, L501.9520, L509.3000, L801.2600, L100.0100, L503.0105, L3300.1500, L506.0400, L500.4050, L3300.1750 #### [facility] [address] [place], [place], [id number] AST [Catalytic activity/Vol] 13 U/L Low 15-37 [facility] Comment on above: Performed By: #### L 501.45287, L506.1000, L501.9520, L509.3000, L801.2600, L100.0100, L503.0105, L3300.1500, L506.0400, L500.4050, L3300.1750 #### [facility] [address] [place], [place], [id number] Bilirubin [Mass/Vol] 0.30 mg/dL Normal 0.20-1.00 [facility] Comment on above: Result Comment: For patients on eltrombopag therapy, use of Dimension Byers TBIL is not recommended. Performed By: #### L 501.01015, L506.1000, L501.9520, L509.3000, L801.2600, L100.0100, L503.0105, L3300.1500, L506.0400, L500.4050, L3300.1750 #### [facility] [address] [place], [address] BUN/CRE 20.5 RATIO High 10-20 [facility] Comment on above: Performed By: #### L 501.46004, L506.1000, L501.9520, L509.3000, L801.2600, L100.0100, L503.0105, L3300.1500, L506.0400, L500.4050, L3300.1750 #### [facility] Laboratory [address] [place], [address] CA,Total 8.9 mg/dL Normal 8.5-10.1 [facility] Comment on above: Performed By: #### L 501.74864, L506.1000, L501.9520, L509.3000, L801.2600, L100.0100, L503.0105, L3300.1500, L506.0400, L500.4050, L3300.1750 #### [facility] Laboratory [address] [place], [address] Chloride [Moles/Vol] 108 mmol/L High 98-107 [facility] Comment on above: Performed By: #### L 501.50060, L506.1000, L501.9520, L509.3000, L801.2600, L100.0100, L503.0105, L3300.1500, L506.0400, L500.4050, L3300.1750 #### [facility] Laboratory [address] [facility]. [place], [place], [id number] CO2 [Moles/Vol] 26.0 mmol/L Normal 21.0-32.0 [facility] Comment on above: Performed By: #### L 501.88656, L506.1000, L501.9520, L509.3000, L801.2600, L100.0100, L503.0105, L3300.1500, L506.0400, L500.4050, L3300.1750 #### [facility] [address] [place], [address] (905) Creatinine [Mass/Vol] 0.73 mg/dL Normal 0.55-1.02 [facility] Comment on above: Result Comment: The validity of the calculated GFR GFRAA in patients over 70 years has not been determined. Clinical correlation is essential. Performed By: #### L 501.33965, L506.1000, L501.9520, L509.3000, L801.2600, L100.0100, L503.0105, L3300.1500, L506.0400, L500.4050, L3300.1750 #### [facility] [address] [facility] [place], [address] EST GFR - AA 110 mL/min Normal >60 [facility] Comment on above: Result Comment: Afri can Zimbabwean GFR Calc Performed By: #### L 501.69354, L506.1000, L501.9520, L509.3000, L801.2600, L100.0100, L503.0105, L3300.1500, L506.0400, L500.4050, L3300.1750 #### [facility] [address] [facility]. [place], [place], [id number] GAP 5 Normal 5-15 [facility] Comment on above: Performed By: #### L 501.48838, L506.1000, L501.9520, L509.3000, L801.2600, L100.0100, L503.0105, L3300.1500, L506.0400, L500.4050, L3300.1750 #### [facility] Laboratory [address] [place], [address] GFR/1.73 sq M.predicted among non-blacks MDRD (S/P/Bld) [Vol rate/Area] 91 mL/min/{1.73_m2} Normal >60 [facility] Comment on above: Result Comment: Non- GFR Calc Performed By: #### L 501.40220, L506.1000, L501.9520, L509.3000, L801.2600, L100.0100, L503.0105, L3300.1500, L506.0400, L500.4050, L3300.1750 #### [facility] Laboratory [address] [place], [address] Globulin (S) [Mass/Vol] 4.2 g/dL Normal 2.2-4.2 [facility] Comment on above: Performed By: #### L 501.40491, L506.1000, L501.9520, L509.3000, L801.2600, L100.0100, L503.0105, L3300.1500, L506.0400, L500.4050, L3300.1750 #### [facility] Laboratory [address] [place], [address] Glucose [Mass/Vol] 105 mg/dL Normal 74-106 [facility] Comment on above: Result Comment: Fast ing Glucose result from 100 to 125 mg/dL suggests IMPAIRED HOMEOSTASIS per A.D.A. criteria. Performed By: #### L 501.90460, L506.1000, L501.9520, L509.3000, L801.2600, L100.0100, L503.0105, L3300.1500, L506.0400, L500.4050, L3300.1750 #### [facility] Laboratory [address] [place], [address] Potassium [Moles/Vol] 4.2 mmol/L Normal 3.5-5.1 [facility] Comment on above: Performed By: #### L 501.03315, L506.1000, L501.9520, L509.3000, L801.2600, L100.0100, L503.0105, L3300.1500, L506.0400, L500.4050, L3300.1750 #### [facility] Laboratory [address] [place], [address] Sodium [Moles/Vol] 139 mmol/L Normal 136-145 [facility] Comment on above: Performed By: #### L 501.54059, L506.1000, L501.9520, L509.3000, L801.2600, L100.0100, L503.0105, L3300.1500, L506.0400, L500.4050, L3300.1750 #### [facility] [address] [facility]. [place], [place], [address] T PROT 7.9 g/dL Normal 6.4-8.2 [facility] Comment on above: Performed By: #### L 501.72686, L506.1000, L501.9520, L509.3000, L801.2600, L100.0100, L503.0105, L3300.1500, L506.0400, L500.4050, L3300.1750 #### [facility] [address] [facility]. [place], [place], [address] Urea nitrogen [Mass/Vol] 15 mg/dL Normal 7-18 [facility] Comment on above: Performed By: #### L 501.69016, L506.1000, L501.9520, L509.3000, L801.2600, L100.0100, L503.0105, L3300.1500, L506.0400, L500.4050, L3300.1750 #### [facility] [address] [facility] [place], [address] Dehydroepiandrosterone sulfa te (DHEA-S) measurementOrdered By: Terell Conley on 08-11-2024 Dehydroepiandrosterone Sulfate 94.6 ug/dL 41.2-243.7 [facility] Comment on above: Performed at: [address] [id number] Director: Kevin Williamson PhD, Phone: [phone] Direct serum free thyroxine (FT4) measurementOrdered By: Terell Conley on 08-11-2024 Free T4 [Mass/Vol] 0.82 ng/dL 0.76-1.46 [facility] Eosinophil percentageOrdered By: Terell Conley on 08-11-2024 Eosinophils/100 WBC (Bld) 2.0 % 0-5 [facility] Erythrocyte distribution wid th ratioOrdered By: Terell Conley on 08-11-2024 Erythrocyte distribution width (RBC) [Ratio] 13.0 % 11.6-14.6 [facility] Erythrocyte distribution wid th standard deviationOrdered By: Terell Conley on 08-11-2024 Erythrocyte distribution width (RBC) [Entitic vol] 42.9 fL 35.1-43.9 [facility] Estimated glomerular filtrat ion rate (GFR) AmericanOrdered By: Terell Conley on 08-11-2024 Estimated GFR (MDRD) Amer 110 mL/min >60 [facility] Comment on above: GFR Calc Estradiolon 08-11-2024 ESTRADIOL 64.6 pg/mL Normal [facility] Comment on above: Result Comment: NORM AL REFERENCE RANGES FEMALE FOLLICULAR 21.4 - 164.8 pg/mL MID-CYCLE PEAK 49.9 - 367.2 pg/mL LUTEAL 40.2 - 259.0 pg/mL POST-MENOPAUSAL ON MHT <11.0 - 462.1 pg/mL NOT ON MHT <11.0 - 58.3 pg/mL MALE <11.0 - 52.5 pg/mL NOTE: [employer] HAS CONFIRMED THE DRUG FULVETRANT (FASLODEX) MAY CAUSE FALSELY ELEVATED ESTRADIOL RESULTS WHEN USING THIS TEST METHOD. IF PATIENT IS TAKING FULVESTRANT AN ALTERNATIVE METHOD SHOULD BE USED TO DETERMINE ESTRADIOL CONCENTRATION. Performed By: #### L 501.07773, L506.1000, L501.9520, L509.3000, L801.2600, L100.0100, L503.0105, L3300.1500, L506.0400, L500.4050, L3300.1750 #### [facility] Laboratory [address] [place], [address] Estradiol measurementOrdered By: Terell Conley on 08-11-2024 Estradiol (E2) Level 64.6 pg/mL [facility] Comment on above: NORMAL REFERENCE RAN GES FEMALE FOLLICULAR 21.4 - 164.8 pg/mL MID-CYCLE PEAK 49.9 - 367.2 pg/mL LUTEAL 40.2 - 259.0 pg/mL POST-MENOPAUSAL ON MHT <11.0 - 462.1 pg/mL NOT ON MHT <11.0 - 58.3 pg/mL MALE <11.0 - 52.5 pg/mL NOTE:[employer] HAS CONFIRMED THE DRUG FULVETRANT (FASLODEX) MAY CAUSE FALSELY ELEVATED ESTRADIOL RESULTS WHEN USING THIS TEST METHOD. IF PATIENT IS TAKING FULVESTRANT AN ALTERNATIVE METHOD SHOULD BE USED TO DETERMINE ESTRADIOL CONCENTRATION. Free T3on 08-11-2024 Free T3 [Mass/Vol] 2.8 pg/mL Normal 2.18-3.98 [facility] Comment on above: Order Comment: N Performed By: #### L 501.73172, L506.1000, L501.9520, L509.3000, L801.2600, L100.0100, L503.0105, L3300.1500, L506.0400, L500.4050, L3300.1750 #### [facility] Laboratory [address] [place], [address] Free X2Jzraivu By: Terell Conley on 08-11-2024 Free Triiodothyronine (T3) pg/dL 2.8 pg/mL 2.18-3.98 [facility] Glomerular filtration rate ( GFR) estimationOrdered By: Terell Conley on 08-11-2024 Estimated GFR (MDRD) Non-Af Amer 91 mL/min >60 [facility] Comment on above: Non- GFR Calc Glucose measurementOrdered B y: Terell Conley on 08-11-2024 Glucose [Mass/Vol] 105 mg/dL 74-106 [facility] Comment on above: Fasting Glucose resu lt from 100 to 125 mg/dL suggests IMPAIRED HOMEOSTASIS per A.D.A. criteria. Hematocrit Auto (Bld) [Volum e fraction]Ordered By: Terell Conley on 08-11-2024 Hematocrit (Bld) [Volume fraction] 41.0 % 37-47 [facility] Hemoglobin measurementOrdere d By: Terell Conley on 08-11-2024 Hemoglobin (Bld) [Mass/Vol] 13.1 g/dL 12.0-15.0 [facility] Immature granulocytes/100 WB C Auto (Bld)Ordered By: Terell Conley on 08-11-2024 Immature granulocytes/100 WBC (Bld) 0.500 % 0.0-0.9 [facility] Comment on above: IG% - Immature Granu locytes (promyelocytes, myelocytes and metamyelocytes) > 1% indicates that a LEFT SHIFT is Present. Laboratory - Chemistry and C hemistry - challengeOrdered By: Terell Conley on 08-11-2024 AST [Catalytic activity/Vol] 13 U/L Low 15-37 [facility] Lymphocytes Auto (Unsp spec) [#/Vol]Ordered By: Terell Conley on 08-11-2024 Lymphocytes (Bld) [#/Vol] 2.08 10*3/uL 0.83-4.5 1 [facility] Lymphocytes/100 WBC Auto (Un sp spec)Ordered By: Terell Conley on 08-11-2024 Lymphocytes/100 WBC (Bld) 33.9 % 19-41 [facility] MCV (mean corpuscular volume ) determinationOrdered By: Terell Conley on 08-11-2024 MCV (RBC) [Entitic vol] 90.7 fL 81-99 [facility] Mean corpuscular hemoglobin (MCH) determinationOrdered By: Terell Conley on 08-11-2024 MCH (RBC) [Entitic mass] 29.0 pg 27.0-32.0 [facility] Mean corpuscular hemoglobin concentration (MCHC) determinationOrdered By: Terell Conley on 08-11-2024 MCHC (RBC) [Mass/Vol] 32.0 g/dL 32-36 [facility] Mean platelet volume determi nationOrdered By: Terell Conley on 08-11-2024 Platelet mean volume (Bld) [Entitic vol] 10.1 fL 6.2-12.0 [facility] Monocyte percentageOrdered B y: Terell Conley on 08-11-2024 Monocytes/100 WBC (Bld) 6.8 % 0-10 [facility] Neutrophil percentageOrdered By: Terell Conley on 08-11-2024 Neutrophils/100 WBC (Bld) 55.5 % 47-70 [facility] Nucleated red blood cell per centageOrdered By: Terell Conley on 08-11-2024 Nucleated RBC/100 WBC (Bld) [Ratio] 0 % 0-5 [facility] Platelet countOrdered By: Chante Conley on 08-11-2024 Platelets (Bld) [#/Vol] 309 10*3/uL 150-450 [facility] Potassium measurementOrdered By: Terell Conley on 08-11-2024 Potassium [Moles/Vol] 4.2 mmol/L 3.5-5.1 [facility] Quantitative serum progester one measurement by electrochemiluminescence immunoassay (Ordered By: Terell Conley on 08-11-2024 Progesterone Level 0.2 ng/mL . [facility] Comment on above: Follicular phase 0.1 - 0.9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 [facility] Start: 08-09-2024 End: 09-03-[address] Hay Bales DO -Nutritional Servi avery Work Phone: Start: 08-09-2024 End: 09-03-2024 ambulatory [facility] Facility:[facility] Start: 07-21-2024 End: 07-21-[address] Abbey Chavez MD -Outpatient Breast Imaging Work Phone: Start: 07-21-2024 End: 07-21-2024 ambulatory [facility] Facility:[facility] Start: 06-14-2024 End: 07-06-[address] Hay Balse DO -Nutritional Servi avery Work Phone: Start: 06-14-2024 End: 07-06-[address] [facility] Start: 02-09-2024 End: 02-09-2024 Emergency department patient visit [facility] Start: 02-09-2024 End: 02-10-2024 ambulatory [facility] Start: 05-13-2023 End: 05-13-2023 ambulatory [facility] Work Phone: Start: 05-13-2023 End: 05-13-2023 Patient encounter procedure [facility]-Cat Scan, [facility] Work Phone: Start: 05-17-2022 End: 05-17-2022 ambulatory [facility] Work Phone: Start: 05-17-2022 End: 05-17-2022 Patient encounter procedure [facility]-Outpatient Breast Imaging Procedures Date Procedure Procedure Detail Performing Clinician Start: 03-29-[address]25 Fol[address]le stimulating hormone measurement Dr. Hay Bales DO Work Phone: Comment on above: FEMALE:Follicular: 1 .4 - 18.1 mIU/mLMidcycle: 3.4 - 33.4 mIU/mLLuteal: 1.5 - 9.1 mIU/mLPost Menopause: 23.0 - 116.3 mIU/mLMALE: 1.4 - 18.1 mIU/mL Start: 03-29-2025 Vitamin D, 25-hydrox y measurement Dr. Hay Bales DO Work Phone: Comment on above: Vitamin D StatusDefi ciency: <20 ng/mL (50nmol/L)Insufficiency: 20-30 ng/mL (50-75 nmol/L)Sufficiency: 30-100 ng/mL (75-250 nmol/L)Toxicity: >100 ng/mL (>250 nmol/L) Start: 03-24-2025 Body Composition - Initial Dr. Hay Bales DO Work Phone: Start: 12-13-2024 Serum inorganic phos phate measurement Dr. Hay Bales DO Work Phone: Start: 12-13-2024 Urnls dip stick/tabl et reagent auto microscopy Dr. Hay Bales DO Work Phone: Start: 09-24-[address] Hay Bales DO Work Phone: Comment on above: Follicular phase 0.1 - 0.9 Luteal phase 1.8 - 23.9 Ovulation phase 0.1 - 12.0 First trimester 11.0 - 44.3 Second trimester 25.4 - 83.3 Third trimester 58.7 - 214.0 Postmenopausal 0.0 - 0.1Performed at: [facility] [place], [place] [id number] Director: Kevin Williamson PhD, Phone: [phone] Start: 09-20-2024 Liquid based cervica l cytology screening Dr. Hay Bales DO Work Phone: Comment on above: UNSATISFACTORY FOR E VALUATION. Test not performedTh e Thin Prep(R) Manufacturing Plant Manager was unable to read this specimen.Therefore a manual review was performed. Start: 07-21-2024 Screening mammography Marlene Bales DO Work Phone: Start: 05-13-2023 CT of abdomen and pe lvis without contrast Start: 05-17-2022 Screening mammography Plan of Treatment Date Care Activity Detail Author US.doppler Lower extremity vein [facility] Immunizations Immunization Date Immunization Notes Care Provider Fa [facility] 05-21-2024 influenza, seasonal, injectable, preservative free Dr. Hay Bales DO Work Phone: [facility] 05-22-2023 influenza, injectabl e, quadrivalent, preservative free Dr. Hay Bales DO Work Phone: [facility] 05-22-2022 influenza, injectabl e, quadrivalent, preservative free [facility] 05-22-2022 influenza, seasonal, injectable [facility] Work Phone: 05-01-2021 influenza, injectabl e, quadrivalent, preservative free [facility] 05-01-2021 influenza, seasonal, injectable [facility] Work Phone: 08-22-2020 Covid (Moderna) [facility] 07-25-2020 Covid (Moderna) [facility] 05-29-2020 influenza, injectabl e, quadrivalent, preservative free [facility] 05-29-2020 influenza, seasonal, injectable [facility] Work Phone: 05-19-2019 influenza, injectabl e, quadrivalent, preservative free [facility] 05-19-2019 influenza, seasonal, injectable [facility] Work Phone: 07-02-2018 tetanus toxoid, redu wendy diphtheria toxoid, and acellular pertussis vaccine, adsorbed [facility] 06-03-2018 influenza, injectabl e, quadrivalent, preservative free [facility] 06-03-2018 influenza, seasonal, injectable [facility] Work Phone: 04-30-2017 influenza, injectabl e, quadrivalent, preservative free [facility] 04-30-2017 influenza, seasonal, injectable [facility] Work Phone: 05-15-2016 influenza, injectabl e, quadrivalent, preservative free [facility] 05-15-2016 influenza, seasonal, injectable [facility] Work Phone: 05-22-2015 influenza, injectabl e, quadrivalent, preservative free [facility] 05-22-2015 influenza, seasonal, injectable [facility] Work Phone: 05-30-2014 influenza, injectabl e, quadrivalent, preservative free [facility] 05-30-2014 influenza, seasonal, injectable [facility] Work Phone: 04-21-2013 influenza, injectable,quadrivalent , preservative free, pediatric [facility] 03-03-2013 pneumococcal vaccine , unspecified formulation [facility] Payers Date Payer Category Payer Unknown [id number] 2024 Self-pay [id number] 2024 Medicare [id number] 2023 Unknown [id number] 1980 Unknown [id number] 2.16.8 40.1.491178.3.579.2.1243 1978 Unknown [id number] 2.16.8 40.1.664595.3.579.2.1243 Unknown [id number] Unknown [id number] 2.16.8 40.1.477323.3.579.2.462 Unknown [id number] 2.16.8 40.1.716573.3.579.2.462 Unknown [id number] 2.16.8 40.1.194925.3.579.2.462 Unknown [id number] 2.16.8 40.1.586555.3.579.2.462 Unknown [id number] 2.16.8 40.1.383641.3.579.2.462 Unknown [id number] 2.16.8 40.1.074668.3.579.2.462 Unknown [id number] 2.16.8 40.1.380855.3.579.2.462 Unknown [id number] 2.16.8 40.1.222707.3.579.2.462 Unknown [id number] 2.16.8 40.1.324588.3.579.2.462 Unknown [id number] 2.16.8 40.1.792030.3.579.2.462 Unknown [id number] 2.16.8 40.1.547244.3.579.2.462 Unknown [id number] 2.16.8 40.1.352311.3.579.2.462 Unknown [id number] 2.16.8 40.1.362601.3.579.2.462 Unknown [id number] 2.16.8 40.1.304186.3.579.2.462 Unknown [id number] 2.16.8 40.1.150249.3.579.2.462 Unknown [id number] 2.16.8 40.1.737177.3.579.2.462 Unknown [id number] 2.16.8 40.1.583677.3.579.2.462 Unknown [id number] 2.16.8 40.1.005594.3.579.2.462 Unknown [id number] 2.16.8 40.1.816266.3.579.2.462 Social History Date Type Detail Facility Start: 01-09-2022 End: 08-19-2022 Tobacco smoking status NHIS Unknown if ever smoked [facility] Start: 03-12-2020 Occasional [facility] Start: 03-12-2020 None [facility] Start: 03-12-2020 Spouse/ Signif icant Other [facility] Start: 03-08-2020 Non-smoker [facility] Start: 1980 Sex Assigned At Female [facility] Start: 09-20-2024 Tobacco smoking status NHIS Never smoked tobacco (finding) [facility] Start: 09-29-2024 End: 10-05-2024 Sex Female (finding) [facility] Sex Female [facility] Goals Date Patient Goal Desired Activity /State Clinical Notes 09-20-2024 to 01-18-2025 Note Date & Type Note Facility 01-18-2025 Evaluation note Diagnosis Onset Date Resolution Symptomatic varicose veins acute January 18, 2025 1:06pm [facility] Work Phone: 1(555) 484-753003-17-2025 NotePap Smear DiagnosisMarch 2024 11:59pmComment.UNSATISFACTORY FOR EVALUATION.[facility] INTER[facility] A#[id number] [facility] on above:UNSATISFACTORY FOR EVALUATION. 09-20-2024 NotePap Smear QC ReviewMarch 2024 11:59pmComment.Vira Anderson, Supervisory Glue Specialty Supervisor (ASCP)[facility] A#[id number] Osteopathic ClinicComment on above:Vira Anderson, Supervisory Glue Specialty Supervisor (ASCP)09-20-2024 NotePap Smear DiagnosisMarch 2024 11:59pmComment. UNSATISFACTORY FOR EVALUATION.[facility] A#[id number] Osteopathic ClinicComment on above:UNSATISFACTORY FOR EVALUATION.09-20-2024 NotePap Smear QC ReviewMarch 2024 11:59pmComment.Vira Anderson Supervisory Glue Specialty Supervisor (ASCP)[facility] A#[id number]opathic Clinic Comment on above:Vira Anderson Supervisory Glue Specialty Supervisor (ASCP)09-20-2024 NotePap Smear DiagnosisMarch 2024 11:59pmComment.UNSATISFACTORY FOR EVALUATION.[facility] A#[id number] Osteopathic ClinicComment on above:UNSATISFACTORY FOR EVALUATION.09-20-2024 NotePap Smear QC ReviewMarch 2024 11:59pmComment.Vira Anedrson Supervisory Glue Specialty Supervisor (ASCP) [facility] INTERFACED A#[id number] Osteopathic ClinicComment on above:Vira Anderson Supervisory Glue Specialty Supervisor (ASCP)09-20-2024 NotePap Smear QC Review September 20, 2024 11:59pmMarch 2024 2:08pmComment.Vira Anderson Supervisory Glue Specialty Supervisor (ASCP)[facility] INTERFACED A#[id number] Osteopathic Clinic Comment on above:Vira Anderson Supervisory Glue Specialty Supervisor (ASCP)09-20-2024 NotePap Smear QC ReviewMarch 2024 11:59pmMarch 2024 2:08pmComment. Vira Anderson Supervisory Glue Specialty Supervisor (ASCP)[facility] INTERFACED A#[id number] [facility] ClinicComment on above:Vira Anderson Supervisory Glue Specialty Supervisor (ASCP)09-20-2024 Evaluation note* Diagnosis Onset Date Resolution Status Admit Date Anxiety acute September 20 1:03pm Climacteric acute September 20, 2 025 1:03pm Menorrhagia with regular cycle acute September 20, 2024 1:03pm Encounter for routine gynecological examination noneactive September 20, 2024 1:03pm [facility] Work Phone: Evaluation noteNo assessment information available [facility] Work Phone: Reason for referral (narrative)No reason for referral information [facility] Work Phone: Chief Complaint and Reason for Visit Chief Complaint SCREENING Chief Complaint Unspecified abdomina l pain Chief Complaint Admit Date DIET COUNS & SURV June 14, 2024 1 1:33am SCREENING July 21, 2024 1 :45pm DIET COUNS & SURV August 09, 2024 1 1:30am 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) September 20, 2024 1:0 3pm DIET COUNS & SURV September 22, 2024 11: 34am Reason for Visit Admit Date Anxiety September 20, 2024 1:0 3pm Climacteric September 20, 2024 1:0 3pm Menorrhagia with regular cycle September 1:03pm Encounter for routine gynecological exam ination September 20, 2024 1:03pm Chief Complaint Admit Date 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) September 20, 2024 1:0 3pm DIET COUNS & SURV September 22, 2024 11: 34am DIET COUNS & SURV November 02, 2024 11: 33am 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 13, 2024 6:12a m DIET COUNS & SURV December 15, 2024 11:2 6am Chief Complaint Admit Date 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) September 20, 2024 1:0 3pm DIET COUNS & SURV September 22, 2024 11: 34am DIET COUNS & SURV November 02, 2024 11: 33am 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 13, 2024 6:12a m DIET COUNS & SURV December 15, 2024 11:2 6am Varicose Veins January 18, 2025 1:06 pm Chief Complaint Admit Date DIET COUNS & SURV November 02, 2024 11: 33am 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 13, 2024 6:12a m DIET COUNS & SURV December 15, 2024 11:2 6am Varicose Veins January 18, 2025 1:06 pm DIET COUNS & SURV January 26, 2025 11:3 1am Reason for Visit Admit Date Symptomatic varicose veins January 18 1:06pm Chief Complaint Admit Date 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 13, 2024 6:12a m DIET COUNS & SURV December 15, 2024 11:2 6am Varicose Veins January 18, 2025 1:06 pm DIET COUNS & SURV January 26, 2025 11:3 1am DIET COUNS & SURV March 16, 2025 11:23am assess body composition March 24, 2025 9:42am Family History No Family History Records Found Relationship Condition Age at Onset Recorded Date/T mishel mother Cardiac disease Unknown grandmother Malignant neoplasm of breast Unknown father Hypercholesterolemia Unknown Advance Directives No Advanced Directives Records Found Advance Directive Response Recorded Date/ Time Living Will No March 08 9:19am Power of Leather Coater No March 08, 2020 9:19am Advance Directive Response Recorded Date/ Time Living Will No March 08 10:19am Do you have a Healthcare Power of Leather Coater? No March 08, 2020 10:19am Living Will No April 22 3:48pm Do you have a Healthcare Power of Leather Coater? No April 22, 2024 3:48pm Living Will No July 07 1:07am Do you have a Healthcare Power of Leather Coater? No July 07, 2024 1:07am Living Will No September 04, 2024 1:19am Do you have a Healthcare Power of Leather Coater? No September 04, 2024 1:19am Advance Directive Response Recorded Date/ Time Living Will No March 08 10:19am Do you have a Healthcare Power of Leather Coater? No March 08, 2020 10:19am Living Will No September 04, 2024 1:19am Do you have a Healthcare Power of Leather Coater? No September 04, 2024 1:19am Living Will No October 05, 2024 12:11am Do you have a Healthcare Power of Leather Coater? No October 05, 2024 12:11am Living Will No November 04, 2024 12 :27am Do you have a Healthcare Power of Leather Coater? No November 04, 2024 12:27am Advance Directive Response Recorded Date/ Time Living Will No October 05, 2024 12:11am Do you have a Healthcare Power of Leather Coater? No October 05, 2024 12:11am Living Will No November 04, 2024 12 :27am Do you have a Healthcare Power of Leather Coater? No November 04, 2024 12:27am Advance Directive Response Recorded Date/ Time Living Will No November 04, 2024 12 :27am Do you have a Healthcare Power of Leather Coater? No November 04, 2024 12:27am Summary Purpose Additional Source Comments Care Teams (unrecognized sec tion and content) Team Status: Active Member Role Status Dates Dr. Hay Bales DO Family Provider Active Dr. Hay Bales DO Primary Care Provider Active Team Status: Inactive Member Role Status Dates Dr. Hay Bales DO Primary Care Provider Active Monica Pfeiffer , CLOTHING ROOM SUPERVISOR-C Attending Provider, Referring Prov ider Active Team Status: Active Member Role Status Dates Dr. Hay Bales DO Primary Care Provider Active Team Status: Inactive Member Role Status Dates Dr. Hay Bales DO Primary Care Provider Active Start: June 14, 2024 End: July 06, 2024 Dr. Hay Bales DO Attending Provider Active Start: June 14, 2024 End: July 06, 2024 Dr. Hay Bales DO Referring Provider Active Start: June 14, 2024 End: July 06, 2024 Team Status: Inactive Member Role Status Dates Dr. Hay Bales DO Primary Care Provider Active Start: July 21, 2024 End: July 21, 2024 Dr. Abbey Chavez MD Attending Provider Active Start: July 21, 2024 End: July 21, 2024 Dr. Abbey Chavez MD Referring Provider Active Start: July 21, 2024 End: July 21, 2024 Team Status: Inactive Member Role Status Dates Dr. Hay Bales DO Primary Care Provider Active Start: August 09, 2024 End: September 03, 2024 Dr. Hay Bales DO Attending Provider Active Start: August 09, 2024 End: September 03, 2024 Dr. Hay Bales DO Referring Provider Active Start: August 09, 2024 End: September 03, 2024 Team Status: Inactive Member Role Status Dates Dr. Hay Bales DO Primary Care Provider Active Start: August 11, 2024 End: August 11, 2024 Dr. Terell Conley DO Attending Provider Active Start: August 11, 2024 End: August 11, 2024 Dr. Terell Conley DO Referring Provider Active Start: August 11, 2024 End: August 11, 2024 Team Status: Inactive Member Role Status Dates Dr. Hay Bales DO Primary Care Provider Active Start: September 20, 2024 End: September 20, 2024 Dr. Hay Bales DO Referring Provider Active Start: September 20, 2024 End: September 20, 2024 Dr. Abbey Chavez MD Attending Provider Active Start: September 20, 2024 End: September 20, 2024 Team Status: Inactive Member Role Status Dates Dr. Hay Bales DO Primary Care Provider Active Start: September 20, 2024 End: September 20, 2024 Dr. Abbey Chavez MD Attending Provider Active Start: September 20, 2024 End: September 20, 2024 Dr. Abbey Chavez MD Referring Provider Active Start: September 20, 2024 End: September 20, 2024 Team Status: Active Member Role Status Dates Dr. Hay Bales DO Primary Care Provider Active Start: September 22, 2024 Dr. Hay Bales DO Attending Provider Active Start: September 22, 2024 Dr. Hay Bales DO Referring Provider Active Start: September 22, 2024 Team Status: Active Member Role Status Dates Dr. Hay Bales DO Primary Care Provider Active Start: September 24, 2024 Elyse M Leadbetter , CLOTHING ROOM SUPERVISOR-C Attending Provider Active Start: September 24, 2024 Elyse M Leadbetter , CLOTHING ROOM SUPERVISOR-C Referring Provider Active Start: September 24, 2024 Team Status: Inactive Member Role Status Dates Dr. Hay Bales DO Primary Care Provider Active Start: September 24, 2024 End: September 24, 2024 Elyse M Leadbetter , CLOTHING ROOM SUPERVISOR-C Attending Provider Active Start: September 24, 2024 End: September 24, 2024 Elyse M Leadbetter , CLOTHING ROOM SUPERVISOR-C Referring Provider Active Start: September 24, 2024 End: September 24, 2024 Team Status: Inactive Member Role Status Dates Dr. Hay Bales DO Primary Care Provider Active Start: September 22, 2024 End: October 04, 2024 Dr. Hay Bales DO Attending Provider Active Start: September 22, 2024 End: October 04, 2024 Dr. Hay Bales DO Referring Provider Active Start: September 22, 2024 End: October 04, 2024 Team Status: Active Member Role/Relationship Status Dates Dr. Hay Bales DO Primary Care Provider Active Team Status: Inactive Member Role/Relationship Status Dates Dr. Hay Bales DO Primary Care Provider Active Start: September 20, 2024 End: September 20, 2024 Dr. Hay Bales DO Referring Provider Active Start: September 20, 2024 End: September 20, 2024 Dr. Abbey Chavez MD Attending Provider Active Start: September 20, 2024 End: September 20, 2024 Team Status: Inactive Member Role/Relationship Status Dates Dr. Hay Bales DO Primary Care Provider Active Start: September 20, 2024 End: September 20, 2024 Dr. Abbey Chavez MD Attending Provider Active Start: September 20, 2024 End: September 20, 2024 Dr. Abbey Chavez MD Referring Provider Active Start: September 20, 2024 End: September 20, 2024 Team Status: Inactive Member Role/Relationship Status Dates Dr. Hay Bales DO Primary Care Provider Active Start: September 22, 2024 End: October 04, 2024 Dr. Hay Bales DO Attending Provider Active Start: September 22, 2024 End: October 04, 2024 Dr. Hay Bales DO Referring Provider Active Start: September 22, 2024 End: October 04, 2024 Team Status: Inactive Member Role/Relationship Status Dates Dr. Hay Bales DO Primary Care Provider Active Start: September 24, 2024 End: September 24, 2024 Elyse Bullard NP-Sarabjit Attending Provider Active Start: September 24, 2024 End: September 24, 2024 Elyse Bullard NP-C Referring Provider Active Start: September 24, 2024 End: September 24, 2024 Team Status: Inactive Member Role/Relationship Status Dates Dr. Hay Bales DO Primary Care Provider Active Start: November 02, 2024 End: November 03, 2024 Dr. Hay Bales DO Attending Provider Active Start: November 02, 2024 End: November 03, 2024 Dr. Hay Bales DO Referring Provider Active Start: November 02, 2024 End: November 03, 2024 Team Status: Active Member Role/Relationship Status Dates Dr. Hay Bales DO Primary Care Provider Active Start: December 13, 2024 Health Risk Assessment Attending Provider Active Start: December 13, 2024 Health Risk Assessment Referring Provider Active Start: December 13, 2024 Team Status: Inactive Member Role/Relationship Status Dates Dr. Hay Bales DO Primary Care Provider Active Start: December 15, 2024 End: January 03, 2025 Dr. Hay Bales DO Attending Provider Active Start: December 15, 2024 End: January 03, 2025 Dr. Hay Bales DO Referring Provider Active Start: December 15, 2024 End: January 03, 2025 Team Status: Inactive Member Role/Relationship Status Dates Dr. Hay Bales DO Primary Care Provider Active Start: January 18, 2025 End: January 18, 2025 Dr. Hay Bales DO Referring Provider Active Start: January 18, 2025 End: January 18, 2025 MELCHOR Odom Attending Provider Active Star t: January 18, 2025 End: January 18, 2025 Team Status: Inactive Member Role/Relationship Status Dates Dr. Hay Bales DO Primary Care Provider Active Start: November 02, 2024 End: November 03, 2024 Dr. Hay Bales DO Attending Provider Active Start: November 02, 2024 End: November 03, 2024 Dr. Hay Bales DO Referring Provider Active Start: November 02, 2024 End: November 03, 2024 Team Status: Active Member Role/Relationship Status Dates Dr. Hay Bales DO Primary Care Provider Active Start: December 13, 2024 Health Risk Assessment Attending Provider Active Start: December 13, 2024 Health Risk Assessment Referring Provider Active Start: December 13, 2024 Team Status: Inactive Member Role/Relationship Status Dates Dr. Hay Bales DO Primary Care Provider Active Start: December 15, 2024 End: January 03, 2025 Dr. Hay Bales DO Attending Provider Active Start: December 15, 2024 End: January 03, 2025 Dr. Hay Bales DO Referring Provider Active Start: December 15, 2024 End: January 03, 2025 Team Status: Inactive Member Role/Relationship Status Dates Dr. Hay Bales DO Primary Care Provider Active Start: January 18, 2025 End: January 18, 2025 Dr. Hay Bales DO Referring Provider Active Start: January 18, 2025 End: January 18, 2025 MELCHOR Odom Attending Provider Active Star t: January 18, 2025 End: January 18, 2025 Team Status: Inactive Member Role/Relationship Status Dates Dr. Hay Bales DO Primary Care Provider Active Start: January 26, 2025 End: February 03, 2025 Dr. Hay Bales DO Attending Provider Active Start: January 26, 2025 End: February 03, 2025 Dr. Hay Bales DO Referring Provider Active Start: January 26, 2025 End: February 03, 2025 Team Status: Active Member Role/Relationship Status Dates Dr. Hay Bales DO Primary care physician Active Team Status: Active Member Role/Relationship Status Dates Dr. Hay Bales DO Primary care physician Active Start: December 13, 2024 Health Risk Assessment Attending physician Active Start: December 13, 2024 Health Risk Assessment Referring Provider Active Start: December 13, 2024 Team Status: Inactive Member Role/Relationship Status Dates Dr. Hay Bales DO Primary care physician Active Start: December 15, 2024 End: January 03, 2025 Dr. Hay Bales DO Attending physician Active Start: December 15, 2024 End: January 03, 2025 Dr. Hay Bales DO Referring Provider Active Start: December 15, 2024 End: January 03, 2025 Team Status: Inactive Member Role/Relationship Status Dates Dr. Hay Bales DO Primary care physician Active Start: January 18, 2025 End: January 18, 2025 Dr. Hay Bales DO Referring Provider Active Start: January 18, 2025 End: January 18, 2025 MELCHOR Odom Attending physician Active Sta rt: January 18, 2025 End: January 18, 2025 Team Status: Inactive Member Role/Relationship Status Dates Dr. Hay Bales DO Primary care physician Active Start: January 26, 2025 End: February 03, 2025 Dr. Hay Bales DO Attending physician Active Start: January 26, 2025 End: February 03, 2025 Dr. Hay Bales DO Referring Provider Active Start: January 26, 2025 End: February 03, 2025 Team Status: Inactive Member Role/Relationship Status Dates Dr. Hay Bales DO Primary care physician Active Start: March 16, 2025 End: April 05, 2025 Dr. Hay Bales DO Attending physician Active Start: March 16, 2025 End: April 05, 2025 Dr. Hay Bales DO Referring Provider Active Start: March 16, 2025 End: April 05, 2025 Team Status: Inactive Member Role/Relationship Status Dates Dr. Hay Bales DO Primary care physician Active Start: March 24, 2025 End: March 24, 2025 Dr. Hay Bales DO Attending physician Active Start: March 24, 2025 End: March 24, 2025 Dr. Hay Bales DO Referring Provider Active Start: March 24, 2025 End: March 24, 2025 Team Status: Active Member Role/Relationship Status Dates TIEN YARBROUGH Attending physician Active Start: March 29, 2025 TIEN YARBROUGH Referring Provider Active Start: March 29, 2025 Dr. Hay Bales DO Primary care physician Active Start: March 29, 2025 Team Status: Inactive Member Role/Relationship Status Dates TIEN YARBROUGH Attending physician Active Start: March 29, 2025 End: March 29, 2025 TIEN YARBROUGH Referring Provider Active Start: March 29, 2025 End: March 29, 2025 Dr. Hay Bales DO Primary care physician Active Start: March 29, 2025 End: March 29, 2025 INFORMATION SOURCE (unrecogn ized section and content) DATE CREATED AUTHOR 02/16/2024 [facility] DATE CREATED AUTHOR AUTHOR'S ORGANIZ ATION 07/22/2024 [facility] DATE CREATED AUTHOR AUTHOR'S ORGANIZ ATION 05/08/2025 [facility] FOR RECORDS PERTAINING TO PATIENTS WHO ARE OR HAVE BEEN ENROLLED IN A CHEMICAL DEPENDENCY/SUBSTANCEABUSE PROGRAM, SOME INFORMATION MAY BE OMITTED. This clinical summary was aggregated from multiple sources. Caution should be exercised in using it in the provision of clinical care. This summary normalizes information from multiple sources, and as a consequence, information in this document may materially change the coding, format and clinical context of patient data. In addition, data may be omitted in some cases. CLINICAL DECISIONS SHOULD BE BASED ON THE PRIMARY CLINICAL RECORDS. [employer] provides no warranty or guarantee of the accuracy or completeness of information in this document.
== END | disposition home or self-care (01) ==
PROVIDERS: PCP Family Medicine; Referring Provider Nurse Practitioner Family; Visit Provider Nurse Practitioner Family
DX: R68.82 Decreased libido (principal); R53.83 Other fatigue
CPT/HCPCS: 36415; 84270; 84402; 84403